=== PATIENT | female | born 1980 | race Caucasian/White ===

== ENCOUNTER 2016-06-05 09:42 | Emergency (ER) | payer MEDICARE, OTHER ==
[~2016-06-05] VITALS: Ht 162.6 cm; Wt 80.0 kg
[~2016-06-05 09:42] MED LIST: CLON1 PO
[2016-06-05] MEDS ORDERED: VIST50CA PO (09:58)
[2016-06-05] MEDS ORDERED: CELE40TA PO (09:58)
[2016-06-05] MEDS ORDERED: TRAZ150T75 PO (09:58)
[2016-06-05 10:00] VITALS: BP 134/76; PULSE 100; RESP 20; TEMP 98.5; O2SAT 97
[2016-06-05] MEDS ORDERED: LORazepam 1 MG TAB PO ONE (10:15)
[2016-06-05 11:00] LABS: AUTOMATED NEUTROPHIL # 5.9 TH/MM3 (1.8-7.7); BASOPHIL % 0.4 % (0.0-2.0); EOSINOPHIL # 0.2 TH/MM3 (0-0.4); EOSINOPHIL % 2.4 % (0.0-4.0); HEMATOCRIT 37.4 % (35.0-46.0); HEMO FLAGS DIFF FINAL; LYMPH % 26.5 % (9.0-44.0); LYMPHOCYTE # 2.4 TH/MM3 (1.0-4.8); MEAN CELL VOLUME 86.5 FL (80.0-100.0); MEAN CORPUSCULAR HEMOGLOBIN 28.6 PG (27.0-34.0); MEAN CORPUSCULAR HGB CONC 33.1 % (32.0-36.0); MONO % 5.2 % (0.0-8.0); NEUT % 65.5 % (16.0-70.0); PLATELET COUNT 278 TH/MM3 (150-450); RED BLOOD COUNT 4.32 MIL/MM3 (4.00-5.30); RED CELL DISTRIBUTION WIDTH 13.2 % (11.6-17.2); WHITE BLOOD COUNT 9.1 TH/MM3 (4.0-11.0)
[2016-06-05 11:06] LABS: GLOMERULAR FILTRATION RATE 71 ML/MIN (>89)
[2016-06-05 11:07] LABS: ACETAMINOPHEN 3.5 MCG/ML (10.0-30.0); ALT (GPT) 54 U/L (10-53); ANION GAP 8 MEQ/L (5-15); AST (GOT) 34 U/L (15-37); BICARBONATE 22.9 MEQ/L (21.0-32.0); CHLORIDE 105 MEQ/L (98-107); POTASSIUM 3.6 MEQ/L (3.5-5.1); SODIUM (NA) 136 MEQ/L (136-145)
[2016-06-05 11:08] LABS: ALKALINE PHOSPHATASE 95 U/L (45-117); TOTAL BILIRUBIN ADULT 1.2 MG/DL (0.2-1.0)
[2016-06-05 11:11] LABS: AMPHETAMINE, URINE POS (NEG); BARBITURATES, URINE NEG (NEG); COCAINE, URINE NEG (NEG)
[2016-06-05 11:12] LABS: BLOOD UREA NITROGEN 13 MG/DL (7-18)
[2016-06-05 12:00] VITALS: BP 133/63; PULSE 91; RESP 19; O2SAT 97
--- NOTE | 2016-06-05 12:00 | PD ---
HPI Chief Complaint: Psychiatric Symptoms Time Seen by Provider: 10:02 Travel History International Travel<30 days: No Contact w/Intl Traveler<30days: No Traveled to known affect area: No History of Present Illness HPI Patient is a 35 year old female who is brought in by PD under a Price Act. Patient has been here multiple times for psych evals and drug abuse. She says she has not been able to get her psych meds secondary to monetary issues. She is speaking fast and complaining of her mother and boyfriend selling pain medicine and not helping her. Her family called police because they were concerned about her. PFSH Past Medical History Bipolar Disorder: Yes Anxiety: Yes Heart Rhythm Problems: No Cancer: No Cardiovascular Problems: No High Cholesterol: No Chest Pain: No Congestive Heart Failure: No Diminished Hearing: No Endocrine: No Genitourinary: No Immune Disorder: No Musculoskeletal: Yes (right foot pain) Neurologic: No Psychiatric: Yes (PTSD, DISSOCIATIVE D/O) Reproductive: No Respiratory: No Immunizations Current: Yes Tetanus Vaccination: < 5 Years ?: Not LMP: 2 weeks ago : 1 Para: 1 Past Surgical History Section: Yes Cholecystectomy: Yes Other Surgery: Yes Social History Alcohol Use: No (PT DENIES) Tobacco Use: Yes (/2 PPD) Substance Use: Yes Allergies-Medications (Allergen,Severity, Reaction): Coded Allergies: *MDRO Multi-Drug Resistant Organism (Verified Allergy, Unknown, 06/05/16) MRSA Foot Wound 08/2012 Reported Meds & Prescriptions Reported Meds & Active Scripts Active Reported Trazodone (Trazodone HCl) 150 Mg Tab 150 Mg PO HS Vistaril (Hydroxyzine Pamoate) 50 Mg Cap 50 Mg PO QID PRN Celexa (Citalopram Hydrobromide) 40 Mg Tab 40 Mg PO DAILY Review of Systems Except as stated in HPI: all other systems reviewed are Neg General / Constitutional: No: Fever, Chills HENT: No: Headaches, Lightheadedness Cardiovascular: No: Chest Pain or Discomfort Respiratory: No: Shortness of Breath Gastrointestinal: No: Nausea, Vomiting Genitourinary: No: Dysuria Musculoskeletal: No: Myalgias Skin: Positive Rash, Positive Itching Neurologic: No: Weakness, Dizziness Physical Exam Narrative GENERAL: Awake and alert, in no acute distress SKIN: Warm and dry. Urticaria present on the abdomen and legs. HEAD: Atraumatic. Normocephalic. EYES: Pupils equal and round. No scleral icterus. ENT: Mucous membranes pink and moist. NECK: Trachea midline. No JVD. CARDIOVASCULAR: Regular rate and rhythm. No murmur appreciated. RESPIRATORY: No accessory muscle use. Clear to auscultation. Breath sounds equal bilaterally. GASTROINTESTINAL: Abdomen soft, non-tender, nondistended. MUSCULOSKELETAL: No obvious deformities. No clubbing. No cyanosis. No edema. NEUROLOGICAL: Awake and alert. No obvious cranial nerve deficits. Motor grossly within normal limits. Normal speech. PSYCHIATRIC: anxious, pressured speech Data Data Last Documented VS Vital Signs Date Time Temp Pulse Resp B/P Pulse Ox O2 Delivery O2 Flow Rate FiO2 06/05/16 12:00 91 19 133/63 97 Room Air 06/05/16 10:00 98.5 Orders Complete Blood Count With Diff (06/05/16 10:02) Comprehensive Metabolic Panel (06/05/16 10:02) Drug Screen, Random Urine (06/05/16 10:02) Ed Urine Pregnancytest Poc (06/05/16 10:02) Alcohol (Ethanol) (06/05/16 10:02) Salicylates (Aspirin) (06/05/16 10:02) Tylenol (Acetaminophen) (06/05/16 10:02) Psych Screen (06/05/16 10:02) Hydroxyzine Pamoate (Vistaril) (06/05/16 10:15) Lorazepam (Ativan) (06/05/16 10:15) Diet Regular Basic (06/05/16 Lunch) Labs Laboratory Tests Test 06/05/16 06/05/16 10:30 10:40 Urine Opiates Screen POS Urine Barbiturates Screen NEG Urine Amphetamines Screen POS Urine Benzodiazepines Screen POS Urine Cocaine Screen NEG Urine Cannabinoids Screen POS White Blood Count 9.1 TH/MM3 Red Blood Count 4.32 MIL/MM3 Hemoglobin 12.4 GM/DL Hematocrit 37.4 % Mean Corpuscular Volume 86.5 FL Mean Corpuscular Hemoglobin 28.6 PG Mean Corpuscular Hemoglobin 33.1 % Concent Red Cell Distribution Width 13.2 % Platelet Count 278 TH/MM3 Mean Platelet Volume 7.6 FL Neutrophils (%) (Auto) 65.5 % Lymphocytes (%) (Auto) 26.5 % Monocytes (%) (Auto) 5.2 % Eosinophils (%) (Auto) 2.4 % Basophils (%) (Auto) 0.4 % Neutrophils # (Auto) 5.9 TH/MM3 Lymphocytes # (Auto) 2.4 TH/MM3 Monocytes # (Auto) 0.5 TH/MM3 Eosinophils # (Auto) 0.2 TH/MM3 Basophils # (Auto) 0.0 TH/MM3 CBC Comment DIFF FINAL Differential Comment Sodium Level 136 MEQ/L Potassium Level 3.6 MEQ/L Chloride Level 105 MEQ/L Carbon Dioxide Level 22.9 MEQ/L Anion Gap 8 MEQ/L Blood Urea Nitrogen 13 MG/DL Creatinine 0.90 MG/DL Estimat Glomerular Filtration 71 ML/MIN Rate Random Glucose 73 MG/DL Calcium Level 8.0 MG/DL Total Bilirubin 1.2 MG/DL Aspartate Amino Transf 34 U/L (AST/SGOT) Alanine Aminotransferase 54 U/L (ALT/SGPT) Alkaline Phosphatase 95 U/L Total Protein 6.8 GM/DL Albumin 3.4 GM/DL Salicylates Level 1.9 MG/DL Acetaminophen Level 3.5 MCG/ML Ethyl Alcohol Level LESS THAN 3 MG/DL MDM Medical Decision Making Medical Screen Exam Complete: Yes Emergency Medical Condition: Yes Medical Record Reviewed: Yes Differential Diagnosis drug abuse, sukhdeep, psychosis Narrative Course Patient is a 35 year old female brought in by PD under a BA for psychosis. Exam shows pressured speech, urticaria. Patient requesting vistaril. Given vistarail and Ativan. Labs sent, show no acute abnormalities. Drug screen positive for amphetamines, opiates, benzos. Patient medically cleared for psych screen. Disposition per psychiatry. Diagnosis Primary Impression: Psychosis Qualified Code: F23 - Brief psychotic disorder Condition: Stable Jeny Camacho MD Jun 05, 2016 12:00
[2016-06-05 18:16] VITALS: BP 115/75; PULSE 95; RESP 18
[2016-06-05] MEDS ORDERED: hydrOXYzine PAMOATE 25 MG CAP PO ONE (20:30)
[2016-06-05 22:36] VITALS: BP 110/57; PULSE 75; RESP 14
[2016-06-06 02:21] VITALS: BP 128/62; PULSE 77; RESP 16
[2016-06-06 06:47] VITALS: BP 113/58; PULSE 92; RESP 17; O2SAT 98
== END 2016-06-06 08:39 ==
LOC: NEPA 09:42 → NEPJ 06-06 08:39
DX: F29 Unspecified psychosis not due to a substance or known physiological condition (principal); L50.9 Urticaria, unspecified; F31.9 Bipolar disorder, unspecified; F41.9 Anxiety disorder, unspecified; F43.10 Post-traumatic stress disorder, unspecified; F17.210 Nicotine dependence, cigarettes, uncomplicated
CPT/HCPCS: 80053; 80307; 84703; 85025; 99285; Q0177; 80320; 80329; G0480; G0481

== ENCOUNTER 2017-01-11 04:36 | Emergency (ER) | payer MEDICARE, OTHER ==
[~2017-01-11 04:36] MED LIST changes: +CELE40TA PO; -CLON1 PO; +TRAZ150T75 PO; +VIST50CA PO
[2017-01-11 04:59] VITALS: BP 125/91; PULSE 105; RESP 20; TEMP 98; O2SAT 99
--- NOTE | 2017-01-11 04:59 | PD ---
HPI Chief Complaint: [place] act Time Seen by Provider: 04:50 Travel History International Travel<30 days: No Contact w/Intl Traveler<30days: No Traveled to known affect area: No History of Present Illness HPI 36-year-old female presents under [place] act initiated by the police. The patient reports that she was arrested yesterday for disorderly conduct at her mother's house, just recently released. The patient reports that she was standing outside of a mailbox in her mother's neighborhood this evening when a man with the neighborhood watch felt that she was acting suspicious any called the police. She was then placed under [place] act because of her history of IV methamphetamine abuse. The patient reports that she was just released from penitentiary and has not used any drugs. She does not use any alcohol. She reports that she is somewhat thirsty but she is otherwise without complaint. She reports that she has been upset because the payment for her storage unit is late because she was in penitentiary. She denies suicidal or homicidal ideation. She has no medical complaints at this time. PFSH Past Medical History Bipolar Disorder: Yes Anxiety: Yes Heart Rhythm Problems: No Cancer: No Cardiovascular Problems: No High Cholesterol: No Chest Pain: No Congestive Heart Failure: No Diminished Hearing: No Endocrine: No Genitourinary: No Immune Disorder: No Musculoskeletal: Yes (right foot pain) Neurologic: No Psychiatric: Yes (PTSD, DISSOCIATIVE D/O) Reproductive: No Respiratory: No Immunizations Current: Yes : 1 Para: 1 Past Surgical History Section: Yes Cholecystectomy: Yes Other Surgery: Yes Social History Alcohol Use: No (PT DENIES) Tobacco Use: Yes (1/2 PPD) Substance Use: Yes Allergies-Medications (Allergen,Severity, Reaction): Coded Allergies: *MDRO Multi-Drug Resistant Organism (Verified Allergy, Unknown, 06/05/16) MRSA Foot Wound 08/2012 Reported Meds & Prescriptions Reported Meds & Active Scripts Active Reported Trazodone (Trazodone HCl) 150 Mg Tab 150 Mg PO HS Vistaril (Hydroxyzine Pamoate) 50 Mg Cap 50 Mg PO QID PRN Celexa (Citalopram Hydrobromide) 40 Mg Tab 40 Mg PO DAILY Review of Systems Except as stated in HPI: all other systems reviewed are Neg Physical Exam Narrative GENERAL: Well-developed well-nourished female in no acute distress answering questions appropriately vital signs reviewed. SKIN: Warm and dry. HEAD: Atraumatic. Normocephalic. EYES: Pupils equal and round. No scleral icterus. No injection or drainage. ENT: No nasal bleeding or discharge. Mucous membranes pink and moist. NECK: Trachea midline. No JVD. CARDIOVASCULAR: Regular rate and rhythm. No murmur appreciated. RESPIRATORY: No accessory muscle use. Clear to auscultation. Breath sounds equal bilaterally. GASTROINTESTINAL: Abdomen soft, non-tender, nondistended. Hepatic and splenic margins not palpable. MUSCULOSKELETAL: No obvious deformities. No clubbing. No cyanosis. No edema. NEUROLOGICAL: Awake and alert. No obvious cranial nerve deficits. Motor grossly within normal limits. Normal speech. PSYCHIATRIC: Appropriate mood and affect; insight and judgment normal. Data Data Last Documented VS Vital Signs Date Time Temp Pulse Resp B/P (MAP) Pulse Ox O2 Delivery O2 Flow Rate FiO2 01/11/17 04:59 98.0 105 20 125/91 (102) 99 Orders Orders Oral Rehydration (01/11/17 04:56) [facility] Medical Decision Making Medical Screen Exam Complete: Yes Emergency Medical Condition: Yes Medical Record Reviewed: Yes Differential Diagnosis Suspicious activity versus polysubstance abuse versus acute psychosis Narrative Course The patient appears to be of sound mind with reasonable judgment. She does not appear under the influence of any drugs or alcohol. When she is able to obtain a ride home she will be discharged. Diagnosis Primary Impression: History of methamphetamine abuse Med/Other Pt SpecificInfo: No Change to Meds Disposition: 01 DISCHARGE HOME Condition: Stable Shubham Moore Jan 11, 2017 04:59
[2017-01-11 08:08] VITALS: BP 123/81; TEMP 97.8
== END 2017-01-11 08:13 | disposition home or self-care (01) ==
LOC: NEPD 04:36
DX: F15.21 Other stimulant dependence, in remission (principal); F31.9 Bipolar disorder, unspecified; F41.9 Anxiety disorder, unspecified; F43.10 Post-traumatic stress disorder, unspecified; F44.9 Dissociative and conversion disorder, unspecified; F17.200 Nicotine dependence, unspecified, uncomplicated; Z79.899 Other long term (current) drug therapy
CPT/HCPCS: 99281

== ENCOUNTER 2017-01-11 11:46 | Inpatient (IN) | payer MEDICARE, OTHER ==
[~2017-01-11] VITALS: Ht 165.1 cm; Wt 65.4 kg
[2017-01-11 12:02] VITALS: BP 136/84; PULSE 95; RESP 16; TEMP 98.2; O2SAT 97
--- NOTE | 2017-01-11 12:59 | PD ---
HPI Chief Complaint: Psychiatric Symptoms Time Seen by Provider: 12:59 (Gin Madden) Time Seen by Provider: 13:11 (Latasha Peace MD) Travel History International Travel<30 days: No Contact w/Intl Traveler<30days: No Traveled to known affect area: No (Gin Madden) History of Present Illness HPI 36 year old female with history of methamphetamine dependency, recently discharged from the hospital following a [place] act, presents to the emergency department now under Price act for psychiatric evaluation. Patient got a tonight with her mother and made comments about not wanting to live. Place contacted and she was brought in under a Price act. Patient denies suicidal or homicidal ideations. She does tell me that her and her mother are not good for each other. She states they both need to get well. Patient continues to ramble about her and her mother's relationship. Then she goes on to her drug abuse. She stating that she needs help and was well taken care of here. She has no other symptoms to report at this time. (Gin Madden) [facility] Past Medical History Bipolar Disorder: Yes Anxiety: Yes Heart Rhythm Problems: No Cancer: No Cardiovascular Problems: No High Cholesterol: No Chest Pain: No Congestive Heart Failure: No Diminished Hearing: No Endocrine: No Genitourinary: No Immune Disorder: No Musculoskeletal: Yes (right foot pain) Neurologic: No Psychiatric: Yes (PTSD, DISSOCIATIVE D/O) Reproductive: No Respiratory: No Immunizations Current: Yes ?: Not : 1 Para: 1 (Gin Madden) Past Surgical History Section: Yes Cholecystectomy: Yes Gynecologic Surgery: Yes (perforated uterus ) Other Surgery: Yes (Gin Madden) Social History Alcohol Use: No (PT DENIES) Tobacco Use: Yes (1/2 PPD) Substance Use: Yes (meth) (Gin Madden) Allergies-Medications (Allergen,Severity, Reaction): Coded Allergies: *MDRO Multi-Drug Resistant Organism (Verified Allergy, Unknown, 06/05/16) MRSA Foot Wound 08/2012 Reported Meds & Prescriptions Reported Meds & Active Scripts Active (Latasha Peace MD) Review of Systems Except as stated in HPI: all other systems reviewed are Neg (Gin Madden) Physical Exam Narrative GENERAL: Well-nourished tearful woman, slightly anxious but in no acute distress. Unable to focus on one topic during our conversation. SKIN: Focused skin assessment warm/dry. HEAD: Atraumatic. Normocephalic. EYES: Pupils equal and round. No scleral icterus. No injection or drainage. ENT: No nasal bleeding or discharge. Mucous membranes pink and moist. NECK: Trachea midline. No JVD. CARDIOVASCULAR: Regular rate and rhythm. No murmur appreciated. RESPIRATORY: No accessory muscle use. Clear to auscultation. Breath sounds equal bilaterally. GASTROINTESTINAL: Abdomen soft, non-tender, nondistended. Hepatic and splenic margins not palpable. MUSCULOSKELETAL: No obvious deformities. No clubbing. No cyanosis. No edema. NEUROLOGICAL: Awake and alert. No obvious cranial nerve deficits. Motor grossly within normal limits. Normal speech. (Gin Madden) Data Data Last Documented VS Vital Signs Date Time Temp Pulse Resp B/P (MAP) Pulse Ox O2 Delivery O2 Flow Rate FiO2 01/12/17 06:00 72 17 112/67 (82) 97 Room Air 01/11/17 12:02 98.2 (Latasha Peace MD) Orders Orders Complete Blood Count With Diff (01/11/17 12:08) Basic Metabolic Panel (Bmp) (01/11/17 12:08) Ed Urine Pregnancytest Poc (01/11/17 12:08) Psych Screen (01/11/17 12:08) Drug Screen, Random Urine (01/11/17 12:08) Alcohol (Ethanol) (01/11/17 12:08) Olanzapine Inj (Zyprexa Inj) (01/11/17 13:45) Diphenhydramine Inj (Benadryl Inj) (01/11/17 13:45) Lorazepam Inj (Ativan Inj) (01/11/17 13:38) Lorazepam Inj (Ativan Inj) (01/11/17 13:40) Potassium Chloride Eff (K-Lyte Cl Eff) (01/11/17 16:30) Diet Regular Basic (01/11/17 Dinner) Diet Regular Basic (01/12/17 Breakfast) (Latasha Peace MD) Labs Laboratory Tests Test 01/11/17 12:20 01/11/17 15:23 Urine Opiates Screen NEG Urine Barbiturates Screen NEG Urine Amphetamines Screen POS Urine Benzodiazepines Screen NEG Urine Cocaine Screen NEG Urine Cannabinoids Screen POS White Blood Count 7.3 TH/MM3 Red Blood Count 4.26 MIL/MM3 Hemoglobin 13.0 GM/DL Hematocrit 36.7 % Mean Corpuscular Volume 85.9 FL Mean Corpuscular Hemoglobin 30.6 PG Mean Corpuscular Hemoglobin Concent 35.6 % Red Cell Distribution Width 13.0 % Platelet Count 295 TH/MM3 Mean Platelet Volume 9.2 FL Neutrophils (%) (Auto) 58.2 % Lymphocytes (%) (Auto) 30.6 % Monocytes (%) (Auto) 7.4 % Eosinophils (%) (Auto) 3.3 % Basophils (%) (Auto) 0.5 % Neutrophils # (Auto) 4.2 TH/MM3 Lymphocytes # (Auto) 2.2 TH/MM3 Monocytes # (Auto) 0.5 TH/MM3 Eosinophils # (Auto) 0.2 TH/MM3 Basophils # (Auto) 0.0 TH/MM3 CBC Comment DIFF FINAL Differential Comment Blood Urea Nitrogen 5 MG/DL Creatinine 0.73 MG/DL Random Glucose 82 MG/DL Calcium Level 8.2 MG/DL Sodium Level 138 MEQ/L Potassium Level 3.0 MEQ/L Chloride Level 105 MEQ/L Carbon Dioxide Level 23.4 MEQ/L Anion Gap 10 MEQ/L Estimat Glomerular Filtration Rate 90 ML/MIN Ethyl Alcohol Level LESS THAN 3 MG/DL (Latasha Peace MD) MDM Medical Decision Making Medical Screen Exam Complete: Yes Emergency Medical Condition: Yes Medical Record Reviewed: Yes Differential Diagnosis Mood disorder versus personality disorder versus adjustment reaction disorder Narrative Course 36 year-old female presents to the emergency department under a Price act for psychiatric evaluation. Patient is unable to focus completely during our conversation. She goes off on many different hand gins. She appears without distress although slightly anxious. CBC is with hypokalemia 3.0, otherwise without acute concern. Toxicology is positive for amphetamines and cannabinoids. Patient is medically cleared to undergo psychiatric screening for further evaluation and disposition. Mental health screening discussed with the patient. Psychiatric screen ordered. (Gin Madden) Diagnosis Primary Impression: Polysubstance (including opioids) dependence, daily use Additional Impression: Hypokalemia Condition: Stable Gin Madden Jan 11, 2017 12:59 Latasha Peace MD Jan 12, 2017 08:23
[2017-01-11] MEDS ORDERED: LORazepam 2 MG/ML VIAL ONE (13:38)
[2017-01-11] MEDS ORDERED: LORazepam 2 MG/ML VIAL IM ONE (13:40)
[2017-01-11] MEDS ORDERED: OLANZapine IM 10 MG VIAL IM ONE (13:45)
[2017-01-11] MEDS ORDERED: diphenhydrAMINE HCL 50 MG/ML VIAL IM ONE (13:45)
[2017-01-11 16:06] LABS: AUTOMATED NEUTROPHIL # 4.2 TH/MM3 (1.8-7.7); BASOPHIL % 0.5 % (0.0-2.0); EOSINOPHIL # 0.2 TH/MM3 (0-0.4); EOSINOPHIL % 3.3 % (0.0-4.0); HEMATOCRIT 36.7 % (35.0-46.0); HEMO FLAGS DIFF FINAL; LYMPH % 30.6 % (9.0-44.0); LYMPHOCYTE # 2.2 TH/MM3 (1.0-4.8); MEAN CELL VOLUME 85.9 FL (80.0-100.0); MEAN CORPUSCULAR HEMOGLOBIN 30.6 PG (27.0-34.0); MEAN CORPUSCULAR HGB CONC 35.6 % (32.0-36.0); MONO % 7.4 % (0.0-8.0); NEUT % 58.2 % (16.0-70.0); PLATELET COUNT 295 TH/MM3 (150-450); RED BLOOD COUNT 4.26 MIL/MM3 (4.00-5.30); WHITE BLOOD COUNT 7.3 TH/MM3 (4.0-11.0)
[2017-01-11 16:13] LABS: ANION GAP 10 MEQ/L (5-15); BICARBONATE 23.4 MEQ/L (21.0-32.0); BLOOD UREA NITROGEN 5 MG/DL (7-18); CHLORIDE 105 MEQ/L (98-107); GLOMERULAR FILTRATION RATE 90 ML/MIN (>89); SODIUM (NA) 138 MEQ/L (136-145)
[2017-01-11 16:14] LABS: ALCOHOL LESS THAN 3 MG/DL (0-5)
[2017-01-11] MEDS ORDERED: POTASSIUM CHLORIDE 25 MEQ EFFERVESCENT TAB PO ONE (16:30)
[2017-01-11 18:17] VITALS: BP 110/65; PULSE 77; RESP 18; O2SAT 96
[2017-01-11 22:00] VITALS: BP 117/64; PULSE 71; RESP 18
[2017-01-12 02:04] VITALS: BP 113/67; PULSE 81; RESP 18; O2SAT 98
[2017-01-12 06:00] VITALS: BP 112/67; PULSE 72; RESP 17; O2SAT 97
[2017-01-12] MEDS ORDERED: LORazepam 0.5 MG TAB PO PRN (10:30)
[2017-01-12] MEDS ORDERED: LORazepam 2 MG/ML VIAL IM PRN ×2 (10:30→11:00)
--- NOTE | 2017-01-12 10:35 | HHI.HP ---
Provisional Diagnosis Admission Date Sells I. Adjustment disorder with mixed disturbance of emotion and conduct Certification of Person's Competence To Provide Express and Informed Consent I have personally examined Aileen Zamarripa , a person being served at [facility] on, Jan 12, 2017 10:25. Express and informed consent means consent voluntarily given in writing, by a competent person, after sufficient explanation and disclosure of the subject matter involved to enable the person to make a knowing and willful decision without any element of force, fraud, deceit, duress, or other form of constraint or coercion. This person is 18 years of age or older, is not now known to be incompetent to consent to treatment with a guardian advocate, and does not have a health care surrogate or proxy currently making medical treatment decisions. I have found this person to be one of the following: [x] Competent to provide express and informed consent, as defined above, for voluntary admission to this facility and is competent to provide express and informed consent for treatment. He/she has the consistent capacity to make well reasoned, willful, and knowing decisions concerning his or her medical or mental health treatment. The person fully and consistently understands the purpose of the admission for examination/placement and is fully capable of personally exercising all rights [place] Incompetent to provide express and informed consent to voluntary admission, and this is incompetent to provide express and informed consent to treatment. The person must be transferred to involuntary status and a petition for a guardian advocate filed with the Circuit Court. [] Refusing to provide express and informed consent to voluntary admission but is competent to provide express and informed consent for treatment. The person must be discharged or transferred to involuntary status. Form shall be completed within 24 hours of a person's arrival at the receiving facility and filed in the clinical record of each person: 1. Admitted on a voluntary basis 2. Permitted to provide express and informed consent to his/her own treatment 3. Allowed to transfer from involuntary to voluntary status 4. Prior to permitting a person to consent to his or her own treatment after having been previously found incompetent to consent to treatment. History of Present Illness Capacity: Has Capacity HPI This is a 36-year-old female who presented to our emergency department twice yesterday, the second time under a Price act for making suicidal threats. The patient is a poor historian and she gives a disjointed account of what happened to bring her back. She states that she and her mother were doing errands and that they are not good for each other. She admits to making suicidal statements. She was also agitated yesterday to the point where she required an intramuscular injection of antipsychotic, Zyprexa. Patient is sad today and unable to contract for safety. She describes symptoms of depressed mood, anhedonia, sleep disturbance, anxiety, intermittent suicidal ideation, appetite disturbance, social withdrawal, diminished self-esteem, and feelings of hopelessness and helplessness. Patient is noted to have been admitted in May this year and twice last year. Her medical record describes a history of bipolar disorder and self-medicating with methamphetamine and cannabis. Historically, patient has been treated with Celexa, trazodone and Vistaril. She states she has been off her medicines for months. Review of Systems Except as stated in HPI: all other systems reviewed are Neg Past Psych History Psychological trauma history Abuse when she was younger Violence risk - others (6 mos) Minimal Violence risk - self (6 mos) High Substance Abuse History Drugs/Alcohol past 12 months Recently abusing cannabis and crystal meth. Past Family Social History Coded Allergies: *MDRO Multi-Drug Resistant Organism (Verified Allergy, Unknown, 06/05/16) MRSA Foot Wound 08/2012 Discontinued Reported Medications Hydroxyzine Pamoate (Vistaril) 50 Mg Cap, 50 MG PO QID Y for ANXIETY, CAP 0 Refills 06/05/16 Citalopram (Celexa) 40 Mg Tab, 40 MG PO DAILY for Control Depression, #30 TAB 0 Refills 06/05/16 Family History Positive for mood and anxiety disorders. Social History Intermittently employed. Has one child. Lives with her mother. Self medicates with illicit drugs. Does not drink alcohol. Patient's Strengths (min. 2) Verbal and resilient Physical Exam GENERAL: SKIN: Warm and dry. HEAD: Normocephalic. EYES: No scleral icterus. No injection or drainage. NECK: Supple, trachea midline. No JVD or lymphadenopathy. CARDIOVASCULAR: Regular rate and rhythm without murmurs, gallops, or rubs. RESPIRATORY: Breath sounds equal bilaterally. No accessory muscle use. GASTROINTESTINAL: Abdomen soft, non-tender, nondistended. MUSCULOSKELETAL: No cyanosis, or edema. BACK: Nontender without obvious deformity. No CVA tenderness. Vital Signs Vital Signs Date Time Temp Pulse Resp B/P (MAP) Pulse Ox O2 Delivery O2 Flow Rate FiO2 01/12/17 06:00 72 17 112/67 (82) 97 Room Air 01/11/17 12:02 98.2 Lab Results Test 01/11/17 12:20 01/11/17 15:23 Urine Opiates Screen NEG Urine Barbiturates Screen NEG Urine Amphetamines Screen POS Urine Benzodiazepines Screen NEG Urine Cocaine Screen NEG Urine Cannabinoids Screen POS White Blood Count 7.3 TH/MM3 Red Blood Count 4.26 MIL/MM3 Hemoglobin 13.0 GM/DL Hematocrit 36.7 % Mean Corpuscular Volume 85.9 FL Mean Corpuscular Hemoglobin 30.6 PG Mean Corpuscular Hemoglobin Concent 35.6 % Red Cell Distribution Width 13.0 % Platelet Count 295 TH/MM3 Mean Platelet Volume 9.2 FL Neutrophils (%) (Auto) 58.2 % Lymphocytes (%) (Auto) 30.6 % Monocytes (%) (Auto) 7.4 % Eosinophils (%) (Auto) 3.3 % Basophils (%) (Auto) 0.5 % Neutrophils # (Auto) 4.2 TH/MM3 Lymphocytes # (Auto) 2.2 TH/MM3 Monocytes # (Auto) 0.5 TH/MM3 Eosinophils # (Auto) 0.2 TH/MM3 Basophils # (Auto) 0.0 TH/MM3 CBC Comment DIFF FINAL Differential Comment Blood Urea Nitrogen 5 MG/DL Creatinine 0.73 MG/DL Random Glucose 82 MG/DL Calcium Level 8.2 MG/DL Sodium Level 138 MEQ/L Potassium Level 3.0 MEQ/L Chloride Level 105 MEQ/L Carbon Dioxide Level 23.4 MEQ/L Anion Gap 10 MEQ/L Estimat Glomerular Filtration Rate 90 ML/MIN Ethyl Alcohol Level LESS THAN 3 MG/DL Mental Status Examination Speech: Hesitant, Circumstantial, Tangential Orientation: x3 Memory: Unremarkable Thought Process: Circumstantial, Tangential Thought Content: Bizarre thinking Hallucination Type: None Attention and Concentration: Abnormal Suicidal Ideation: Yes Previous Suicide Attempts: No Homicidal Ideation: No Previous Homicide Attempts: No Insight: Fair Judgment: Impulsive, Unrealistic Affect: Anxious, Sad Mood: Sad, Anxious Motor Activity: Normal gait Assessment & Plan Problem List: (1) Adjustment disorder with mixed disturbance of emotions and conduct ICD Codes: F43.25 - Adjustment disorder with mixed disturbance of emotions and conduct Status: Acute Assessment & Plan Estimated LOS: days. Patient came to this emergency department twice yesterday , the second time under a Price act for suicidal remarks. She also required an intramuscular injection of antipsychotic medication because she was so agitated. This physician feels she is at high risk for self-harm and therefore is being admitted for evaluation and treatment. This physician is ordering a CBC and comprehensive metabolic profile to determine if the patient has an infectious process or metabolic process which is causing or contributing to her moodiness. Additionally, we will check her thyroid stimulating hormone, vitamin B-12 and vitamin D levels, encase deficiencies in these areas are causing or contributing to her mood disorder. Additionally, she will have an EKG to determine her cardiac conduction status which might be adversely affected by psychotropic medicines. Patient was started back on Celexa, 40 mg per day, per her request. She was also started back on trazodone for sleep and hydroxyzine for anxiety. This physician spoke to the patient's nurse regarding her recent behavior. Case management will also be involved to obtain further information from the patient's mother and to assist with appropriate disposition planning. Ko Victor MD Jan 12, 2017 10:35
[2017-01-12] MEDS ORDERED: MAGNESIUM HYDROXIDE SUSP 30 ML CUP PO PRN (11:00)
[2017-01-12] MEDS: CITALOPRAM HYDROBROMIDE 40 MG TAB PO SCH (11:00)
[2017-01-12] MEDS ORDERED: LORazepam 1 MG TAB PO PRN (11:00)
[2017-01-12] MEDS ORDERED: ACETAMINOPHEN 325 MG TAB PO PRN (11:00)
[2017-01-12] MEDS ORDERED: hydrOXYzine HCL 50 MG TAB PO PRN (11:00)
[2017-01-12] MEDS ORDERED: ALUMINUM/MAGNESIUM/SIMETH 30 ML CUP PO PRN (11:00)
[2017-01-12 11:25] VITALS: BP 116/70; PULSE 79; RESP 18; O2SAT 98
[2017-01-12 12:51] VITALS: BP 139/80; PULSE 100; RESP 19; TEMP 97.8; O2SAT 98
[2017-01-12 18:36] VITALS: BP 136/78; PULSE 64; RESP 17; TEMP 97.5; O2SAT 98
[2017-01-12] MEDS: traZODone HCL 50 MG TAB PO PRN (21:29)
[2017-01-13 06:10] VITALS: BP 94/52; PULSE 73; RESP 17; TEMP 98.2; O2SAT 97
[2017-01-13] MEDS: CITALOPRAM HYDROBROMIDE 40 MG TAB PO SCH (09:00)
[2017-01-13 10:11] LABS: AUTOMATED NEUTROPHIL # 4.4 TH/MM3 (1.8-7.7); BASOPHIL % 0.3 % (0.0-2.0); EOSINOPHIL # 0.2 TH/MM3 (0-0.4); EOSINOPHIL % 3.1 % (0.0-4.0); HEMATOCRIT 38.7 % (35.0-46.0); HEMO FLAGS DIFF FINAL; LYMPH % 27.5 % (9.0-44.0); LYMPHOCYTE # 1.9 TH/MM3 (1.0-4.8); MEAN CELL VOLUME 88.6 FL (80.0-100.0); MEAN CORPUSCULAR HEMOGLOBIN 30.3 PG (27.0-34.0); MEAN CORPUSCULAR HGB CONC 34.2 % (32.0-36.0); MONO % 6.9 % (0.0-8.0); NEUT % 62.2 % (16.0-70.0); PLATELET COUNT 298 TH/MM3 (150-450); RED BLOOD COUNT 4.38 MIL/MM3 (4.00-5.30); RED CELL DISTRIBUTION WIDTH 13.1 % (11.6-17.2); WHITE BLOOD COUNT 7.1 TH/MM3 (4.0-11.0)
[2017-01-13 10:27] LABS: ANION GAP 10 MEQ/L (5-15); AST (GOT) 15 U/L (15-37); BICARBONATE 26.2 MEQ/L (21.0-32.0); BLOOD UREA NITROGEN 7 MG/DL (7-18); CHLORIDE 104 MEQ/L (98-107); GLOMERULAR FILTRATION RATE 79 ML/MIN (>89); POTASSIUM 3.4 MEQ/L (3.5-5.1); SODIUM (NA) 140 MEQ/L (136-145)
[2017-01-13 10:55] LABS: ALKALINE PHOSPHATASE 72 U/L (45-117); ALT (GPT) 31 U/L (10-53); HDL CHOLESTEROL 46.9 MG/DL (40.0-60.0); LDL CHOLESTEROL 78 MG/DL (0-99); TOTAL BILIRUBIN ADULT 0.5 MG/DL (0.2-1.0)
--- NOTE | 2017-01-13 11:34 | HHI.PYPN ---
Subjective Remarks Patient was seen today for psychiatric reevaluation. Patient reports feeling much better and calmer. However, expressed paranoid ideation against her mother "she is millionaire and is stealing my money", and seems to be a little bit disorganized and tangential, but redirectable. She reported improved mood, denies hopelessness, helplessness, denies suicidal and homicidal ideation. Patient is requesting to be discharged, but is unable to clarify what she is going to go after this admission. I tried to contact her mother for collateral information, but she did not sampler pickup the phone ([phone]). In the unit patient has been calm, but at times disorganized and internally preoccupied. No agitation or hostility reported. Patient has been compliant with medications without any significant side effects. At the beginning patient denied the use of substances, but she was confronted with labs results and she admitted that she has been using IV crystal meth, marijuana and sometimes alcohol. Review of Systems Other No somatic complaints Objective Alert: Yes [place]: Person, Place, Date, Situation Mood: Calm Affect: Flat Memory Intact: Immediate, Recent Hallucinations: Other (she denies) Delusions: Yes Delusion Type: Paranoid, Other Suicidal: Ideation (no SI) Homicidal: Ideation (no HI) Insight/Judgment Poor Labs Test 01/13/17 08:52 White Blood Count 7.1 TH/MM3 Red Blood Count 4.38 MIL/MM3 Hemoglobin 13.2 GM/DL Hematocrit 38.7 % Mean Corpuscular Volume 88.6 FL Mean Corpuscular Hemoglobin 30.3 PG Mean Corpuscular Hemoglobin Concent 34.2 % Red Cell Distribution Width 13.1 % Platelet Count 298 TH/MM3 Mean Platelet Volume 9.2 FL Neutrophils (%) (Auto) 62.2 % Lymphocytes (%) (Auto) 27.5 % Monocytes (%) (Auto) 6.9 % Eosinophils (%) (Auto) 3.1 % Basophils (%) (Auto) 0.3 % Neutrophils # (Auto) 4.4 TH/MM3 Lymphocytes # (Auto) 1.9 TH/MM3 Monocytes # (Auto) 0.5 TH/MM3 Eosinophils # (Auto) 0.2 TH/MM3 Basophils # (Auto) 0.0 TH/MM3 CBC Comment DIFF FINAL Differential Comment Blood Urea Nitrogen 7 MG/DL Creatinine 0.82 MG/DL Random Glucose 74 MG/DL Total Protein 6.1 GM/DL Albumin 3.0 GM/DL Calcium Level 8.5 MG/DL Alkaline Phosphatase 72 U/L Aspartate Amino Transf (AST/SGOT) 15 U/L Alanine Aminotransferase (ALT/SGPT) 31 U/L Total Bilirubin 0.5 MG/DL Sodium Level 140 MEQ/L Potassium Level 3.4 MEQ/L Chloride Level 104 MEQ/L Carbon Dioxide Level 26.2 MEQ/L Anion Gap 10 MEQ/L Estimat Glomerular Filtration Rate 79 ML/MIN Triglycerides Level 104 MG/DL Cholesterol Level 146 MG/DL LDL Cholesterol 78 MG/DL HDL Cholesterol 46.9 MG/DL Cholesterol/HDL Ratio 3.11 RATIO Vitamin B12 Level 317 PG/ML 25-Hydroxy Vitamin D Total 24.0 ng/ML Thyroid Stimulating Hormone 3rd Gen 0.265 uIU/ML Vitals/IOs Vital Signs Date Time Temp Pulse Resp B/P (MAP) Pulse Ox O2 Delivery O2 Flow Rate FiO2 01/13/17 06:10 98.2 73 17 94/52 (66) 97 01/12/17 11:25 Room Air Intake and Output 01/13/17 01/13/17 01/13/17 07:59 15:59 23:59 Intake Total 240 ml Balance 240 ml Assessment & Plan Problem List: (1) Adjustment disorder with mixed disturbance of emotions and conduct ICD Codes: F43.25 - Adjustment disorder with mixed disturbance of emotions and conduct Status: Acute Assessment & Plan: We'll start Seroquel 50 mg at bedtime for psychosis. QTc interval a routine labs reviewed. Support, motivation and psychoeducation provided. Case discussed with nursing staff and outreach and education social worker. Assessment & Plan Estimated LOS: days Justification for Cont. Inpt. Patient has an elevated risk to decompensate at a lower level of care Teo Michelle MD Jan 13, 2017 11:34
[2017-01-13 17:39] LABS: HEMOGLOBIN A1b 1.4 %; HEMOGLOBIN Ao 87.2 %; HEMOGLOBIN LA1C 1.7 %; HEMOGLOBIN P3 3.2 %
--- NOTE | 2017-01-13 17:53 | EKG ---
Date Performed: 01/13/2017 Time Performed: 07:09:54 PTAGE: 36 years EKG: Sinus rhythm NORMAL ECG Compared to prior tracing no significant change PREVIOUS TRACING : 05/10/2016 10.12 DOCTOR: Gilberto Johnson Interpretating Date/Time 01/13/2017 17:51:14
[2017-01-13 18:24] VITALS: BP 126/80; PULSE 77; RESP 18; TEMP 97.9; O2SAT 96
[2017-01-13] MEDS: traZODone HCL 50 MG TAB PO PRN (20:58)
[2017-01-13] MEDS ORDERED: QUEtiapine FUMARATE 25 MG TAB PO SCH (21:00)
[2017-01-14 06:13] VITALS: BP 124/66; PULSE 70; RESP 16; TEMP 98.5; O2SAT 97
[2017-01-14] MEDS: CITALOPRAM HYDROBROMIDE 40 MG TAB PO SCH (08:53)
[2017-01-14] MEDS ORDERED: QUET1TAB7 PO (09:18)
[2017-01-14] MEDS ORDERED: CELE40TA PO (09:18)
--- NOTE | 2017-01-14 09:28 | HHI.DS ---
Psychiatry Discharge Summary Inpatient Psychiatric care?: Yes Advance Directive: No Reason Not Provided: has none Mental Health AdvanceDirective: No Health Care Proxy: No Admission Admission Date Jan 12, 2017 at 10:22 Admission Diagnosis: (1) Adjustment disorder with mixed disturbance of emotions and conduct ICD Code: F43.25 - Adjustment disorder with mixed disturbance of emotions and conduct (2) Substance-related disorder ICD Code: F19.99 - Other psychoactive substance use, unspecified with unspecified psychoactive substance-induced disorder Brief History This is a 36-year-old female who presented to our emergency department twice yesterday, the second time under a Price act for making suicidal threats. The patient is a poor historian and she gives a disjointed account of what happened to bring her back. She states that she and her mother were doing errands and that they are not good for each other. She admits to making suicidal statements. She was also agitated yesterday to the point where she required an intramuscular injection of antipsychotic, Zyprexa. Patient is sad today and unable to contract for safety. She describes symptoms of depressed mood, anhedonia, sleep disturbance, anxiety, intermittent suicidal ideation, appetite disturbance, social withdrawal, diminished self-esteem, and feelings of hopelessness and helplessness. Patient is noted to have been admitted in May this year and twice last year. Her medical record describes a history of bipolar disorder and self-medicating with methamphetamine and cannabis. Historically, patient has been treated with Celexa, trazodone and Vistaril. She states she has been off her medicines for months. Tobacco Use In Past 30 Days: Cigarettes But Not Daily Alcohol Use: 2-4 Times Per Month Hospital Course Patient was admitted in the 2600 units due to disorganized behavior, agitation, aggression, and suicidal ideation. Immediate psychiatric and psychosocial assessment were performed. Safety measures were taken. Patient was to started in Seroquel 25 mg at bedtime and citalopram 20 mg. Medication were titrated up as was necessary and patient tolerated. Patient showed good response to psychotropic regimen, group therapies and individual counseling. Is important to clarify the most probably initial irritability, aggressive behavior and psychosis was most probably secondary to amphetamine intoxication. During the stay in the hospital patient was initially calm, cooperative, and she integrated in group activities. He was compliant with medications, without significant side effects. Patient was widely educated about the importance of avoiding crystal meth and marijuana. At the moment of the discharge patient doesn't present any acute or significant psychiatric symptom. Results Blood Pressure 124 / 66 Vital Signs Date Time Temp Pulse Resp B/P (MAP) Pulse Ox O2 Delivery O2 Flow Rate FiO2 01/14/17 06:13 98.5 70 16 124/66 (85) 97 01/12/17 11:25 Room Air Laboratory Tests Test 01/11/17 12:20 01/11/17 15:23 01/13/17 08:52 Urine Amphetamines Screen POS (NEG) Urine Cannabinoids Screen POS (NEG) Blood Urea Nitrogen 5 MG/DL (7-18) Calcium Level 8.2 MG/DL (8.5-10.1) Potassium Level 3.0 MEQ/L (3.5-5.1) 3.4 MEQ/L (3.5-5.1) Total Protein 6.1 GM/DL (6.4-8.2) Albumin 3.0 GM/DL (3.4-5.0) Estimat Glomerular Filtration Rate 79 ML/MIN (>89) 25-Hydroxy Vitamin D Total 24.0 ng/ML (30-100) Thyroid Stimulating Hormone 3rd Gen 0.265 uIU/ML (0.358-3.740) Laboratory Results Test 01/13/17 08:52 Cholesterol Level 146 MG/DL (120-200) HDL Cholesterol 46.9 MG/DL (40.0-60.0) Hemoglobin A1c 4.9 % (4.3-6.0) LDL Cholesterol 78 MG/DL (0-99) Triglycerides Level 104 MG/DL (42-150) Summary of Procedures No procedures Pending results at discharge: No Medications # of Antipsychotic meds at D/C: 1 Approp Antipsych med options 1 - Minimum of three failed multiple trials of monotherapy. 2 - Documented plan to taper to monotherapy due to previous use of multiple meds OR cross-taper in progress at D/C. 3 - Documentation of augmentation of Clozapine. 4 - Justification other than those listed in allowable values 1-3, document here : Discharge Discharge Date: Jan 14, 2017 Discharge Diagnosis: (1) Adjustment disorder with mixed disturbance of emotions and conduct ICD Code: F43.25 - Adjustment disorder with mixed disturbance of emotions and conduct Status: Acute Mental Status Exam at Disch woman, age appearing, disheveled, calm, cooperative. Speech is low tone, normal volume. Mood is euthymic, affect is congruent with mood. Thought process is logical, coherent and relevant. Thought content is devoid of suicidal ideation, homicidal ideation, visual and auditory hallucinations, no paranoia or delusions present. Insight, impulse control, judgment are fair. Cognition is intact. Pt Condition on Discharge: Stable Discharge Disposition: Discharge Home Discharge Instructions Diet Instructions: As Tolerated, No Restrictions Activities you can perform: Weight Bearing as Patricia Scheduled Appointment: Discharge Time > 30 minutes Discharge/Advance Care Plan Health Problems: (1) Adjustment disorder with mixed disturbance of emotions and conduct Goals to promote your health * To prevent worsening of your condition and complications * To maintain your health at the optimal level Directions to meet your goals Take your medications as prescribed Follow your dietary instruction Follow activity as directed Keep your appointments as scheduled Take your immunizations and boosters as scheduled If your symptoms worsen call your PCP, if no PCP go to Urgent Care Center or Emergency Room For 06/12 questions related to your inpatient stay or results of tests pending at discharge, please contact Dr. Teo Michelle at Smoking is Dangerous to Your Health. Avoid second hand smoking Teo Michelle MD Jan 14, 2017 09:28
== END 2017-01-14 12:50 | disposition home or self-care (01) | DRG 882 ==
LOC: NEPJ 11:46 → NEDA 01-12 10:22 → H260 01-12 12:19
PROVIDERS: ADMIT Psychiatry & Neurology Psychiatry; ATTEND Psychiatry & Neurology Psychiatry
DX: F43.25 Adjustment disorder with mixed disturbance of emotions and conduct (principal); F15.988 Other stimulant use, unspecified with other stimulant-induced disorder; F12.90 Cannabis use, unspecified, uncomplicated; E87.6 Hypokalemia
CPT/HCPCS: 80048; 80053; 80061; 80307; 82306; 82607; 83036; 84443; 84703; 85025; 93005; 96372; J1200; J2060

== ENCOUNTER 2017-02-06 14:29 | Emergency (ER) | payer MEDICARE, OTHER ==
[~2017-02-06] VITALS: Ht 160 cm; Wt 82.0 kg
[~2017-02-06 14:29] MED LIST changes: +QUET1TAB7 PO; -TRAZ150T75 PO; -VIST50CA PO
[2017-02-06 14:34] VITALS: BP 164/79; PULSE 120; RESP 20; TEMP 97.9; O2SAT 97
[2017-02-06 15:16] VITALS: BP 125/75; PULSE 104; RESP 18; O2SAT 97
[2017-02-06] MEDS ORDERED: SODIUM CHLOR 0.9% 1000 ML INJ 1,000 ML IV ONE (15:45)
[2017-02-06 16:17] VITALS: O2SAT 99
[2017-02-06 16:41] LABS: AUTOMATED NEUTROPHIL # 5.5 TH/MM3 (1.8-7.7); BASOPHIL % 0.5 % (0.0-2.0); EOSINOPHIL # 0.2 TH/MM3 (0-0.4); EOSINOPHIL % 2.2 % (0.0-4.0); HEMATOCRIT 38.2 % (35.0-46.0); HEMO FLAGS DIFF FINAL; LYMPH % 26.5 % (9.0-44.0); LYMPHOCYTE # 2.2 TH/MM3 (1.0-4.8); MEAN CELL VOLUME 87.8 FL (80.0-100.0); MEAN CORPUSCULAR HEMOGLOBIN 30.5 PG (27.0-34.0); MEAN CORPUSCULAR HGB CONC 34.8 % (32.0-36.0); MONO % 5.1 % (0.0-8.0); NEUT % 65.7 % (16.0-70.0); PLATELET COUNT 328 TH/MM3 (150-450); RED BLOOD COUNT 4.36 MIL/MM3 (4.00-5.30); RED CELL DISTRIBUTION WIDTH 13.3 % (11.6-17.2); WHITE BLOOD COUNT 8.4 TH/MM3 (4.0-11.0)
[2017-02-06 16:51] LABS: ALT (GPT) 49 U/L (10-53); ANION GAP 6 MEQ/L (5-15); AST (GOT) 31 U/L (15-37); BICARBONATE 27.8 MEQ/L (21.0-32.0); BLOOD UREA NITROGEN 4 MG/DL (7-18); CHLORIDE 106 MEQ/L (98-107); GLOMERULAR FILTRATION RATE 78 ML/MIN (>89); POTASSIUM 3.1 MEQ/L (3.5-5.1); SODIUM (NA) 140 MEQ/L (136-145)
[2017-02-06 16:54] LABS: ALKALINE PHOSPHATASE 89 U/L (45-117); TOTAL BILIRUBIN ADULT 0.8 MG/DL (0.2-1.0)
[2017-02-06 16:57] LABS: ALCOHOL LESS THAN 3 MG/DL (0-5)
--- NOTE | 2017-02-06 17:36 | PD ---
HPI Chief Complaint: Psychiatric Symptoms Time Seen by Provider: 15:33 Travel History International Travel<30 days: No Contact w/Intl Traveler<30days: No Traveled to known affect area: No History of Present Illness HPI 36-year-old female arrives stating she wants see his psychiatrist. She has a history of drug abuse. Her mother dropped her off at a friend's house where he believes the patient probably use drugs including crystal meth. This was last night. This morning the mother received multiple phone calls from the daughter. Patient reports no suicidal ideation or plan to me however did to the mother. She denies homicidal ideation. She reports a history of prior suicide attempt. PFSH Past Medical History Arthritis: No Bipolar Disorder: Yes Anxiety: Yes Heart Rhythm Problems: No Cancer: No Cardiovascular Problems: No High Cholesterol: No Chest Pain: No Congestive Heart Failure: No Cerebrovascular Accident: No Diminished Hearing: No Endocrine: No Genitourinary: No Immune Disorder: No Musculoskeletal: Yes (right foot pain) Neurologic: No Psychiatric: Yes (PTSD, DISSOCIATIVE D/O) Reproductive: No Respiratory: No Immunizations Current: Yes Migraines: No Seizures: No ?: Not LMP: 01/25/17 : 1 Para: 1 Past Surgical History Abdominal Surgery: No Cardiac Surgery: No Section: Yes Cholecystectomy: Yes Ear Surgery: No Endocrine Surgery: No Eye Surgery: No Genitourinary Surgery: No Gynecologic Surgery: Yes (perforated uterus ) Oral Surgery: No Thoracic Surgery: No Other Surgery: Yes Social History Alcohol Use: Yes ( ) Tobacco Use: Yes Substance Use: No (denies ) Allergies-Medications (Allergen,Severity, Reaction): Coded Allergies: *MDRO Multi-Drug Resistant Organism (Verified Allergy, Unknown, 02/06/17) MRSA Foot Wound 08/2012 Reported Meds & Prescriptions Reported Meds & Active Scripts Active Quetiapine (Quetiapine Fumarate) 25 Mg Tab 50 Mg PO HS 30 Days Celexa (Citalopram Hydrobromide) 40 Mg Tab 40 Mg PO DAILY 30 Days Review of Systems ROS Limitations: Clinical Condition Physical Exam Narrative GENERAL: 36-year-old female well-nourished well-developed SKIN: Warm and dry. HEAD: Atraumatic. Normocephalic. EYES: Pupils equal and round. No scleral icterus. No injection or drainage. ENT: No nasal bleeding or discharge. Mucous membranes pink and moist. NECK: Trachea midline. No JVD. CARDIOVASCULAR: Regular rhythm. Heart rate about 105. RESPIRATORY: No accessory muscle use. Clear to auscultation. Breath sounds equal bilaterally. GASTROINTESTINAL: Abdomen soft, non-tender, nondistended. Hepatic and splenic margins not palpable. MUSCULOSKELETAL: Extremities without clubbing, cyanosis, or edema. No obvious deformities. NEUROLOGICAL: Awake and alert. No obvious cranial nerve deficits. Motor grossly within normal limits. Five out of 5 muscle strength in the arms and legs. Normal speech. PSYCHIATRIC: Anxious affect. Denies suicidal and homicidal ideations me. Data Data Last Documented VS Vital Signs Date Time Temp Pulse Resp B/P (MAP) Pulse Ox O2 Delivery O2 Flow Rate FiO2 02/06/17 16:17 99 02/06/17 15:16 104 18 Room Air 02/06/17 14:34 97.9 Vital signs reviewed, blood pressure 125/75 Orders Orders Complete Blood Count With Diff (02/06/17 15:39) Comprehensive Metabolic Panel (02/06/17 15:39) Oximetry (02/06/17 15:39) Iv Access Insert/Monitor (02/06/17 15:39) Ecg Monitoring (02/06/17 15:39) Psych Screen (02/06/17 15:39) Drug Screen, Random Urine (02/06/17 15:39) Alcohol (Ethanol) (02/06/17 15:39) Sodium Chlor 0.9% 1000 Ml Inj (Ns 1000 M (02/06/17 15:45) Diet Regular Basic (02/06/17 Dinner) Labs Laboratory Tests Test 02/06/17 16:00 White Blood Count 8.4 TH/MM3 Red Blood Count 4.36 MIL/MM3 Hemoglobin 13.3 GM/DL Hematocrit 38.2 % Mean Corpuscular Volume 87.8 FL Mean Corpuscular Hemoglobin 30.5 PG Mean Corpuscular Hemoglobin Concent 34.8 % Red Cell Distribution Width 13.3 % Platelet Count 328 TH/MM3 Mean Platelet Volume 7.9 FL Neutrophils (%) (Auto) 65.7 % Lymphocytes (%) (Auto) 26.5 % Monocytes (%) (Auto) 5.1 % Eosinophils (%) (Auto) 2.2 % Basophils (%) (Auto) 0.5 % Neutrophils # (Auto) 5.5 TH/MM3 Lymphocytes # (Auto) 2.2 TH/MM3 Monocytes # (Auto) 0.4 TH/MM3 Eosinophils # (Auto) 0.2 TH/MM3 Basophils # (Auto) 0.0 TH/MM3 CBC Comment DIFF FINAL Differential Comment Blood Urea Nitrogen 4 MG/DL Creatinine 0.83 MG/DL Random Glucose 97 MG/DL Total Protein 7.0 GM/DL Albumin 3.6 GM/DL Calcium Level 8.6 MG/DL Alkaline Phosphatase 89 U/L Aspartate Amino Transf (AST/SGOT) 31 U/L Alanine Aminotransferase (ALT/SGPT) 49 U/L Total Bilirubin 0.8 MG/DL Sodium Level 140 MEQ/L Potassium Level 3.1 MEQ/L Chloride Level 106 MEQ/L Carbon Dioxide Level 27.8 MEQ/L Anion Gap 6 MEQ/L Estimat Glomerular Filtration Rate 78 ML/MIN Urine Opiates Screen NEG Urine Barbiturates Screen NEG Urine Amphetamines Screen POS Urine Benzodiazepines Screen POS Urine Cocaine Screen NEG Urine Cannabinoids Screen POS Ethyl Alcohol Level LESS THAN 3 MG/DL MDM Medical Decision Making Medical Screen Exam Complete: Yes Emergency Medical Condition: Yes Medical Record Reviewed: Yes Differential Diagnosis Altered mental status/psychosis due to infection/environmental exposure/ metabolic abnormality, polypharmacy, alcohol abuse/intoxication, illicit or prescribed drug abuse, malingering/secondary gain, non-organic psychiatric disease Narrative Course CBC & BMP Diagram 02/06/17 16:00 Total Protein 7.0, Albumin 3.6, Calcium Level 8.6, Alkaline Phosphatase 89, Aspartate Amino Transf (AST/SGOT) 31, Alanine Aminotransferase (ALT/SGPT) 49, Total Bilirubin 0.8 Drug screen positive for amphetamines, benzodiazepines and cannabinoids Patient has received IV fluids and potassium. She is here voluntarily. Psychiatry screen has been ordered. Diagnosis Primary Impression: Adjustment disorder with mixed disturbance of emotions and conduct Additional Impressions: Polysubstance (including opioids) dependence, daily use Substance-related disorder Antwon Capellan MD Feb 06, 2017 17:36
== END 2017-02-06 22:03 | disposition home or self-care (01) ==
LOC: NEPD 14:29
DX: F43.25 Adjustment disorder with mixed disturbance of emotions and conduct (principal); F11.20 Opioid dependence, uncomplicated; Z72.0 Tobacco use
CPT/HCPCS: 80053; 80307; 85025; 96360; 99284; J7030

== ENCOUNTER 2017-11-30 14:00 | Inpatient (IN) ==
--- NOTE | 2017-11-30 14:24 | ED ---
HPI General Chief complaint: Skin/Abscess/Foreign Body Stated complaint: Medical Time Seen by Provider: 11/30/17 14:24 Source: patient Mode of arrival: EMS Limitations: other History of Present Illness HPI narrative: 37-year-old female with history of PTSD, bipolar disorder, long- standing history of polysubstance abuse, presents emergency department for evaluation of an injury sustained to her right great toe. Patient is a very poor historian. She is clearly under the influence of an unknown substance at this time. She tells me that she dropped a cast iron farrar on her toe and then she later tells me that she hit her toe on the table. She believes that she did this today. She reports for pain of the right great toe. Pain is constant , throbbing. She states she is unable to move it or touch it without severe pain. Related Data Home Medications Medication Instructions Recorded Confirmed dextroamphetamine-amphetamine 15 mg PO DAILY 11/30/17 11/30/17 [Adderall] escitalopram oxalate [Lexapro] 20 mg PO DAILY 11/30/17 11/30/17 Allergies Allergy/AdvReac Type Severity Reaction Status Date / Time *MDRO Multi-Drug Resistant Allergy Unknown Anaphylaxis Uncoded 11/30/17 14:18 Organism Review of Systems Except as stated in HPI: all other systems reviewed are negative PMFSH History History Provided By: Patient Medical History Medical History ADHD (Acute) Anxiety (Acute) Depressed (Acute) Drug usage (Acute) PTSD (post-traumatic stress disorder) (Acute) Social History Social History Substance History: Unable to Obtain Second Hand Smoke Exposure: No Smoking Status: Current every day smoker Tobacco Type: Cigarettes How Often Do You Have a Drink Containing Alcohol: Unable to Obtain Recent Travel in [place] within the Last 8 Weeks: No Recent Out of Country Travel within the Last 8 Weeks: No Exam Narrative Exam Narrative: GENERAL: Well-nourished but poorly kempt female patient, with jerking body movements, bizarre behavior, appears without distress. SKIN: Focused skin assessment warm/dry. There is a laceration across the dorsal aspect of the right great toe with large amount of debris, hair, dirt, Dried bloody drainage. There is erythema extending on the dorsum of the foot to the ankle. Multiple scabbed lesions on the extremities and face. Varying size of ecchymosis and different stages of healing on the extremities as well. HEAD: Patient has patches of missing hair on her scalp. She is pulling this out in the emergency department. Normocephalic. EYES: Pupils equal and round. No scleral icterus. No injection or drainage. ENT: No nasal bleeding or discharge. Mucous membranes pink and moist. NECK: Trachea midline. No JVD. CARDIOVASCULAR: Tachycardic rate and rhythm. No murmur appreciated. RESPIRATORY: No accessory muscle use. Clear to auscultation. Breath sounds equal bilaterally. GASTROINTESTINAL: Abdomen soft, non-tender, nondistended. Hepatic and splenic margins not palpable. MUSCULOSKELETAL: No obvious deformities. No clubbing. No cyanosis. No edema. NEUROLOGICAL: Awake. Unable to assess cranial nerves patient moves all extremities. Normal speech. PSYCHIATRIC: Bizarre affect. Patient appears to be under the influence of unknown substance, despite her denying this. Course Initial Documented Vital Signs Temperature 98.6 F 11/30/17 14:19 Pulse Rate 129 H 11/30/17 14:19 Respiratory Rate 20 11/30/17 14:19 Blood Pressure 131/79 11/30/17 14:19 Pulse Oximetry 98 11/30/17 14:19 Last Documented Vital Signs Temperature 98.6 F 11/30/17 14:19 Pulse Rate 95 H 11/30/17 17:43 Respiratory Rate 16 11/30/17 17:43 Blood Pressure 131/79 11/30/17 14:19 Pulse Oximetry 97 11/30/17 17:43 Medical Decision Making PORTILLO Attestation PORTILLO supervised visit: Yes [facility] Narrative Medical decision making narrative: 37-year-old female presents emergency department for evaluation right great toe injury. Patient has very bizarre affect. She is seemingly under the influence of an unknown substance. Nursing staff is unable to start IV initially due to patient not cooperating. She is given IM Ativan. X-ray imaging shows an intra-articular fracture. This is open. The wound is extremely contaminated. I discussed the patient with Dr. Kennedy, lockstitch lining setter virtualization engineer. He requests that I irrigate the wound and collect culture.. I discussed this with the patient and strongly urged her to cooperate and allow us to get an IV so she can get IV fluids and additional medication to help her calm down. She agrees with this plan. Lab work is sent. Patient is given IV vancomycin. The wound is copiously irrigated and cleansed. Differential Diagnosis Differential Diagnosis: Fracture open versus closed versus infected wound versus sepsis Medical Records Medical records reviewed: Yes I reviewed the patient's medical records. Lab Data Lab results reviewed: Yes I reviewed the patient's lab results. Result diagrams: 11/30/17 17:30 11/30/17 17:30 Lab Results 11/30/17 11/30/17 11/30/17 Range/Units 17:30 17:30 17:30 WBC 12.5 H (4.0-11.0) th/mm3 RBC 4.44 (4.00-5.30) mil/mm3 Hgb 13.5 (11.6-15.3) gm/dL Hct 40.0 (35.0-46.0) % MCV 90.2 (80.0-100.0) fL MCH 30.5 (27.0-34.0) pg MCHC 33.8 (32.0-36.0) % RDW 13.1 (11.6-17.2) % Plt Count 300 (150-450) th/mm3 MPV 8.2 (7.0-11.0) fL Neut % (Auto) 87.2 H (16.0-70.0) % Lymph % (Auto) 8.0 L (9.0-44.0) % [facility] % (Auto) 4.4 (0.0-8.0) % Eos % (Auto) 0.1 (0.0-4.0) % Baso % (Auto) 0.3 (0.0-2.0) % Neut # (Auto) 10.9 H (1.8-7.7) th/mm3 Lymph # (Auto) 1.0 (1.0-4.8) th/mm3 [facility] # (Auto) 0.6 (0.0-0.9) th/mm3 Eos # (Auto) 0.0 (0.0-0.4) th/mm3 Baso # (Auto) 0.0 (0.0-0.2) th/mm3 WBC Differential . Differential Comment Auto diff final Sodium 143 (136-145) meq/L Potassium 3.3 L (3.5-5.1) meq/L Chloride 109 H (98-107) meq/L Carbon Dioxide 23.7 (21.0-32.0) meq/L Anion Gap 10 (5-15) meq/L BUN 29 H (7-18) mg/dL Creatinine 2.40 H (0.50-1.00) mg/dL Estimated GFR 23 L (>89) mL/min Random Glucose 113 H (74-106) mg/dL Calcium 8.3 L (8.5-10.1) mg/dL Total Creatine Kinase Cancelled Imaging Data Radiologist's impression: Foot X-Ray 11/30/17 14:24 CONCLUSION: 1. Nondisplaced intra-articular fracture involving the distal portion of the first proximal phalanx. 2. Nonspecific soft tissue swelling adjacent to the fifth toe. Discharge Plan Discharge Disposition Patient Disposition: 30 Still Patient Discharge Details Diagnosis: Open fracture of toe of right foot Physicians Team ED Provider: Costa Loera ED Midlevel Provider: Gin Madden Primary Care Provider: Dashawn Franz Other Providers: Horacio Kennedy Rxs /Orders / Referrals /Forms Prescriptions: No Action dextroamphetamine-amphetamine [Adderall] 15 mg Tablet 15 mg PO DAILY RF: 0 escitalopram oxalate [Lexapro] 10 mg Tablet 20 mg PO DAILY RF: 0 Discharge Interventions Interventions: Vital Signs Last Done: 11/30/17 17:43 Status ED Status: With Doctor
[2017-11-30] MEDS ORDERED: Sod Chloride 0.9% Inj 1,000 ML IV.SIG ONE ×2 (14:35→17:30)
--- NOTE | 2017-11-30 16:25 | XR ---
EXAM DATE: 11/30/2017 4:19 PM EDT AGE/SEX: 37 years / Female INDICATIONS: Right 1st toe was "smashed" by a 75 pound weight CLINICAL DATA: This is the patient's initial encounter. Patient reports that signs and symptoms have been present for 1 day and indicates a pain score of 10/10. MEDICAL/SURGICAL HISTORY: None. None. COMPARISON: [facility] [place], FOOT RIGHT COMPLETE ([id number]), 08/16/2012. . FINDINGS: There is an intra-articular nondisplaced fracture involving the distal portion of the first proximal phalanx. The fracture line extends into the DIP joint. The rest the bony structures are grossly intac t. There is some nonspecific soft tissue swelling adjacent to the fifth toe. CONCLUSION: 1. Nondisplaced intra-articular fracture involving the distal portion of the first proximal phalanx. 2. Nonspecific soft tissue swelling adjacent to the fifth toe. Electronically signed by: Reginald Wilson MD 11/30/2017 4:23 PM EDT
[2017-11-30] MEDS ORDERED: Vancomycin Inj 1,000 MG in Sodium Chlor 0.9% Inj 250 ML IV.SIG ONE (16:27)
[2017-11-30 17:49] LABS: Baso % (Auto) 0.3 % (0.0-2.0); Eos % (Auto) 0.1 % (0.0-4.0); Hemoglobin 13.5 gm/dL (11.6-15.3); Mean Corpuscular HGB Conc 33.8 % (32.0-36.0); Mean Corpuscular Hemoglobin 30.5 pg (27.0-34.0); Mean Corpuscular Volume 90.2 fL (80.0-100.0); Mean Platelet Volume 8.2 fL (7.0-11.0); Mono # (Auto) 0.6 th/mm3 (0.0-0.9); Mono % (Auto) 4.4 % (0.0-8.0); Neut # (Auto) 10.9 th/mm3 (1.8-7.7); Neut % (Auto) 87.2 % (16.0-70.0); Platelet Count 300 th/mm3 (150-450); Red Blood Count 4.44 mil/mm3 (4.00-5.30); Red Cell Distribution Width 13.1 % (11.6-17.2); White Blood Count 12.5 th/mm3 (4.0-11.0)
[2017-11-30 18:13] LABS: Calcium 8.3 mg/dL (8.5-10.1); Carbon Dioxide 23.7 meq/L (21.0-32.0); Potassium 3.3 meq/L (3.5-5.1)
[2017-11-30 18:38] LABS: CKMB Percent 0.8 % (0.0-4.0); Creatine Kinase MB 6.5 ng/mL (0.5-3.6)
[2017-11-30] MEDS: Sod Chloride 0.9% Inj 1,000 ML IV.CONT SCH (19:38)
[2017-11-30] MEDS ORDERED: Bisacodyl 10 MG Supp RECTAL PRN (20:07)
[2017-11-30] MEDS ORDERED: Temazepam 15 MG Capsule PO PRN (20:07)
[2017-11-30] MEDS ORDERED: Acetaminophen 325 MG Tablet PO PRN (20:07)
--- NOTE | 2017-11-30 20:18 | P.HP ---
History of Present Illness Service: [facility] Primary Care Physician: Dashawn Franz DO History of Present Illness: 37-year-old female with past medical history significant for PTSD, bipolar disorder and long-standing history of polysubstance abuse presents to the emergency department for the evaluation of a right great toe laceration. The patient is clearly altered on an unknown substance and denies doing any drugs within the last few days. States she lasted methamphetamine last week. 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 The patient is nodding into sleep during her interview. She is an extremely poor historian. Inpatient Certification: I certify that the inpatient services were ordered in accordance with Medicare regulations governing the order. This includes certification that hospital inpatient services are reasonable and necessary and in the case of services not specified as inpatient-only under 42 CFR 419.22(n), that they are appropriately provided as inpatient services in accordance to with the 2-midnight benchmark under 43 CFR 412.3(e) Estimated Total Length of Stay (Days): 2 Plans for Post Hospital Care: Not yet determined Review of Systems Limited by patient's clinical condition PMFSH - History History Provided By: Patient - Medical / Surgical Hx Neg / Unobtainable Surgical History: Unable to Obtain - Medical History Medical History: Medical History (Last Reviewed 11/30/17 @ 17:36 by SOFIA Mendiola) ADHD Anxiety Depressed Drug usage PTSD (post-traumatic stress disorder) - Tobacco History Second Hand Smoke Exposure: No Tobacco Use In Past 30 Days: Yes Smoking Status: Current every day smoker Tobacco Type: Cigarettes - Alcohol History How Often Do You Have a Drink Containing Alcohol: Unable to Obtain - Substance Use History Substance History: Unable to Obtain - Travel History Recent Travel in the [place] Within the Last 8 Weeks: No Recent Travel Out of the Country Within the Last 8 Weeks: No - Immunization History Tetanus Immunization: Unsure Hx Influenza Vaccine This Season: No Medications and Allergies Active Medications: Active Medications Al Hydroxide/Mg Hydroxide (Milk Of Magndanna Liq) 30 ml PO Q12H PRN PRN Reason: Mild Constipation Bisacodyl (Dulcolax Supp) 10 mg RECTAL DAILY PRN PRN Reason: SEVERE CONSITIPATION Sodium Chloride (Ns Inj) 1,000 mls @ 100 mls/hr IV.CONT .Q10H [facility] Last Admin: 11/30/17 19:38 Dose: 100 mls/hr Lactulose (Lactulose Liq) 30 ml PO DAILY PRN PRN Reason: SEVERE CONSITIPATION Ondansetron HCl (Zofran Inj) 4 mg IV.PUSH Q6H PRN PRN Reason: NAUSEA OR VOMITING Potassium Chloride (K-Dur) 40 meq PO ONCE ONE Stop: 11/30/17 20:11 Senna/Docusate Sodium (Yanira-Colace) 1 tab PO BID [facility] Sennosides (Senokot) 17.2 mg PO Q12H PRN PRN Reason: Moderate Constipation Allergies Allergy/AdvReac Type Severity Reaction Status Date / Time *MDRO Multi-Drug Resistant Allergy Unknown Anaphylaxis Uncoded 11/30/17 14:18 Organism Home Medications Medication Instructions Recorded Confirmed Type dextroamphetamine-amphetamine 15 mg PO DAILY 11/30/17 11/30/17 History [Adderall] escitalopram oxalate [Lexapro] 20 mg PO DAILY 11/30/17 11/30/17 History Exam Vital signs: Vital Signs 11/30/17 14:19 11/30/17 17:43 Temperature 98.6 F Pulse Rate 129 H 95 H Respiratory Rate 20 16 Blood Pressure 131/79 Pulse Oximetry 98 97 Intake & Output 11/30/17 11/30/17 12/01/17 06:59 18:59 06:59 Weight 82.1 kg Narrative: Gen.: No acute distress. Awakens with startle response repeatedly. Head: Normocephalic. Atraumatic. EENT: Pupils equal round and reactive to light. Nose without drainage. Airway intact. Cardiovascular: Regular rate and rhythm. No murmurs, rubs or gallops. Respiratory: Lungs clear to auscultation bilaterally. No wheezes or rhonchi. Abdomen: Soft, nontender, nondistended. No peritoneal signs. Musculoskeletal: No gross deformities. No edema. Skin: 3 cm laceration on the dorsal aspect of the right great toe. Multiple small bruises scattering bilateral lower extremities. Neuro: Sensory and motor grossly intact. Cranial nerves II through XII grossly intact. Results - Labs CBC & Chem 7: 11/30/17 17:30 11/30/17 17:30 Labs: Laboratory Results - last 24 hr 11/30/17 11/30/17 11/30/17 17:30 17:30 17:30 WBC 12.5 H RBC 4.44 Hgb 13.5 Hct 40.0 MCV 90.2 MCH 30.5 MCHC 33.8 RDW 13.1 Plt Count 300 MPV 8.2 Neut % (Auto) 87.2 H Lymph % (Auto) 8.0 L Murray % (Auto) 4.4 Eos % (Auto) 0.1 Baso % (Auto) 0.3 Neut # (Auto) 10.9 H Lymph # (Auto) 1.0 Murray # (Auto) 0.6 Eos # (Auto) 0.0 Baso # (Auto) 0.0 WBC Differential . Differential Comment Auto diff final Sodium 143 Potassium 3.3 L Chloride 109 H Carbon Dioxide 23.7 Anion Gap 10 BUN 29 H Creatinine 2.40 H Estimated GFR 23 L Random Glucose 113 H Calcium 8.3 L Total Creatine Kinase 792 H Cancelled CK-MB (CK-2) 6.5 H CK-MB (CK-2) % 0.8 - Imaging Impressions Foot X-Ray 11/30/17 14:24 CONCLUSION: 1. Nondisplaced intra-articular fracture involving the distal portion of the first proximal phalanx. 2. Nonspecific soft tissue swelling adjacent to the fifth toe. Caprini VTE Risk Assessment Caprini VTE Risk Assessment: No/Low Risk (score <= 1) Caprini Risk Assessment Model: Point Value = 1 Point Value = 2 Point Value = 3 Point Value = 5 Age 41-60 Minor surgery BMI > 25 kg/m2 Swollen legs Varicose veins or History of unexplained or recurrent spontaneous Oral contraceptives or hormone replacement Sepsis (< 1 month) Serious lung disease, including pneumonia (< 1 month) Abnormal pulmonary function Acute myocardial infarction Congestive heart failure (< 1 month) History of inflammatory bowel disease Medical patient at bed rest Age 61-74 Arthroscopic surgery Major open surgery (> 45 min) Laparoscopic surgery (> 45 min) Malignancy Confined to bed (> 72 hours) Immobilizing plaster cast Central venous access Age >= 75 History of VTE Family history of VTE Factor V Leiden Prothrombin [id number] Lupus anticoagulant Anticardiolipin antibodies Elevated serum homocysteine Heparin-induced thrombocytopenia Other congenital or acquired thrombophilia Stroke (< 1 month) Elective arthroplasty Hip, pelvis, or leg fracture Acute spinal cord injury (< 1 month) Prophylaxis Regimen: Total Risk Factor Score Risk Level Prophylaxis Regimen 0-1 Low Early ambulation 2 Moderate Order ONE of the following: *Sequential Compression Device (SCD) *Heparin 5000 units SQ BID 3-4 Higher Order ONE of the following medications: *Heparin 5000 units SQ TID *Enoxaparin/Lovenox 40 mg SQ daily (WT < 150 kg, CrCl > 30 mL/min) *Enoxaparin/Lovenox 30 mg SQ daily (WT < 150 kg, CrCl > 10-29 mL/min) *Enoxaparin/Lovenox 30 mg SQ BID (WT < 150 kg, CrCl > 30 mL/min) AND/OR *Sequential Compression Device (SCD) 5 or more Highest Order ONE of the following medications: *Heparin 5000 units SQ TID (Preferred with Epidurals) *Enoxaparin/Lovenox 40 mg SQ daily (WT < 150 kg, CrCl > 30 mL/min) *Enoxaparin/Lovenox 30 mg SQ daily (WT < 150 kg, CrCl > 10-29 mL/min) *Enoxaparin/Lovenox 30 mg SQ BID (WT < 150 kg, CrCl > 30 mL/min) AND *Sequential Compression Device (SCD) Assessment and Plan - Plan Assessment/plan: 1. Right great toe fracture X-ray of the foot significant for nondisplaced intra-articular fracture involving the distal portion of the first proximal phalanx Podiatry consulted, appreciate recommendations Vancomycin/Zosyn given contamination of the wound and unknown timeframe 2. Altered mental status/polysubstance abuse Urine drug screen pending 3. Hypokalemia Status post p.o. repletion Monitor BMP FEN N.p.o. Electrolytes: As above NS at 100 cc/hour
[2017-11-30] MEDS ORDERED: Vancomycin Consult Pharmacy 1 EACH OTHER SCH (21:00)
[2017-11-30 21:04] LABS: Amphetamine Screen,Urine Pos (Neg); Barbiturate Screen,Urine Neg (Neg); Cannabinoid Screen,Urine Neg (Neg); Cocaine Screen,Urine Pos (Neg)
[2017-11-30 21:20] LABS: Opiate Screen,Urine Pos (Neg)
[2017-12-01] MEDS: Piperacil/Tazo 2.25 GM Premix 50 ML IV.SIG SCH ×5 (02:04→20:22)
[2017-12-01] MEDS: Senna/Docusate Sodium 8.6/50 MG Tablet PO SCH ×3 (02:04→20:22)
[2017-12-01 03:05] LABS: Bacteria,Urine Rare /hpf; Bilirubin,Urine Negative (Negative); Clarity,Urine Cloudy (Clear); Color,Urine Amber (Yellw/Straw); Glucose,Urine (UA) Negative (Negative); Hyaline Casts,Urine 17 /lpf (0-3); Leukocyte Esterase,Urine Negative (Negative); Mucus,Urine Many /lpf (Occasional); Nitrite,Urine Negative (Negative); Specific Gravity,Urine 1.027 (1.002-1.035); Squamous Epithelial Cell,Urine 9 /hpf (0-5)
[2017-12-01 06:59] LABS: Baso % (Auto) 0.4 % (0.0-2.0); Eos # (Auto) 0.2 th/mm3 (0.0-0.4); Eos % (Auto) 2.4 % (0.0-4.0); Hematocrit 37.8 % (35.0-46.0); Hemoglobin 12.7 gm/dL (11.6-15.3); Lymph # (Auto) 2.6 th/mm3 (1.0-4.8); Lymph % (Auto) 26.2 % (9.0-44.0); Mean Corpuscular HGB Conc 33.6 % (32.0-36.0); Mean Corpuscular Hemoglobin 30.4 pg (27.0-34.0); Mean Corpuscular Volume 90.2 fL (80.0-100.0); Mean Platelet Volume 8.6 fL (7.0-11.0); Mono # (Auto) 0.9 th/mm3 (0.0-0.9); Mono % (Auto) 9.4 % (0.0-8.0); Neut # (Auto) 6.1 th/mm3 (1.8-7.7); Neut % (Auto) 61.6 % (16.0-70.0); Platelet Count 278 th/mm3 (150-450); Red Blood Count 4.19 mil/mm3 (4.00-5.30); Red Cell Distribution Width 13.6 % (11.6-17.2); White Blood Count 9.9 th/mm3 (4.0-11.0)
[2017-12-01] MEDS ORDERED: Vancomycin Inj 1,000 MG in Sodium Chlor 0.9% Inj 250 ML IV.SIG SCH (07:00)
[2017-12-01 07:18] LABS: Calcium 7.9 mg/dL (8.5-10.1); Carbon Dioxide 20.3 meq/L (21.0-32.0); Potassium 3.6 meq/L (3.5-5.1); Vancomycin,Random 8.3 Comment
[2017-12-01] MEDS: Sod Chloride 0.9% Inj 1,000 ML IV.CONT SCH ×3 (08:12→20:23)
--- NOTE | 2017-12-01 10:19 | P.PN ---
Subjective Interval history: Follow up for right great toe laceration. Patient is currently doing well, resting in bed. No fever or chills. She was initially very drowsy but as we talked she became more alert. Physical Exam Vital signs: Vital Signs 11/30/17 14:19 11/30/17 17:43 11/30/17 20:00 Temperature 98.6 F 97.6 F Pulse Rate 129 H 95 H 97 H Respiratory Rate 20 16 19 Blood Pressure 131/79 115/61 Pulse Oximetry 98 97 96 12/01/17 00:00 12/01/17 04:00 12/01/17 08:00 Temperature 97.4 F L 97.5 F L 97.8 F Pulse Rate 92 H 92 H 97 H Respiratory Rate 17 17 20 Blood Pressure 99/56 L 116/74 107/56 L Pulse Oximetry 96 97 95 Intake & Output 11/30/17 12/01/17 12/01/17 18:59 06:59 18:59 Intake Total 1050 / 1050 Balance 1050 / 1050 Weight 82.1 kg 74.5 kg Intake: IV 1050 / 1050 NS Inj 1,000 ML @ 100 mls/hr IV 1000 / 1000 .CONT .Q10H [facility] Rx#:[id number] Zosyn 2.25 GM Premix 50 ML @ 50 / 50 100 mls/hr IV.SIG Q6H [facility] Rx#: [id number] Other: # Voids 3 Narrative: GENERAL: Alert, NAD. SKIN: Warm and dry. HEAD: Normocephalic. EYES: No scleral icterus. No injection or drainage. NECK: Supple, trachea midline. No JVD or lymphadenopathy. CARDIOVASCULAR: Regular rate and rhythm without murmurs, gallops, or rubs. RESPIRATORY: Breath sounds equal bilaterally. No accessory muscle use. GASTROINTESTINAL: Abdomen soft, non-tender, nondistended. MUSCULOSKELETAL: No cyanosis, or edema. Right great toe covered in dressing. There is some dried blood on her foot. BACK: Nontender without obvious deformity. No CVA tenderness. Results - Labs CBC & Chem 7: 12/01/17 05:50 12/01/17 05:15 Laboratory Results - last 24 hr 11/30/17 11/30/17 11/30/17 17:30 17:30 17:30 WBC 12.5 H RBC 4.44 Hgb 13.5 Hct 40.0 MCV 90.2 MCH 30.5 MCHC 33.8 RDW 13.1 Plt Count 300 MPV 8.2 Neut % (Auto) 87.2 H Lymph % (Auto) 8.0 L [place] % (Auto) 4.4 Eos % (Auto) 0.1 Baso % (Auto) 0.3 Neut # (Auto) 10.9 H Lymph # (Auto) 1.0 [place] # (Auto) 0.6 Eos # (Auto) 0.0 Baso # (Auto) 0.0 WBC Differential . Differential Comment Auto diff final Sodium 143 Potassium 3.3 L Chloride 109 H Carbon Dioxide 23.7 Anion Gap 10 BUN 29 H Creatinine 2.40 H Estimated GFR 23 L Random Glucose 113 H Calcium 8.3 L Total Creatine Kinase 792 H Cancelled CK-MB (CK-2) 6.5 H CK-MB (CK-2) % 0.8 Beta HCG, Qual Urine Color Urine Clarity Urine pH Ur Specific [place] Urine Protein Urine Glucose (UA) Urine Ketones Urine Occult Blood Urine Nitrate Urine Bilirubin Urine Urobilinogen Ur Leukocyte Esterase Urine RBC Urine WBC Ur Squamous Epith Cells Urine Bacteria Hyaline Casts WBC Casts Urine Mucus Micro UA Comment Urine Culture Comments Random Vancomycin Urine Opiates Screen Ur Barbiturates Screen Ur Amphetamines Screen U Benzodiazepines Scrn Urine Cocaine Screen U Cannabinoids Screen 11/30/17 12/01/17 12/01/17 20:16 02:40 05:15 WBC RBC Hgb Hct MCV MCH MCHC RDW Plt Count MPV Neut % (Auto) Lymph % (Auto) [place] % (Auto) Eos % (Auto) Baso % (Auto) Neut # (Auto) Lymph # (Auto) [place] # (Auto) Eos # (Auto) Baso # (Auto) WBC Differential Differential Comment Sodium 143 Potassium 3.6 Chloride 111 H Carbon Dioxide 20.3 L Anion Gap 12 BUN 26 H Creatinine 0.99 Estimated GFR 63 L Random Glucose 59 L Calcium 7.9 L Total Creatine Kinase CK-MB (CK-2) CK-MB (CK-2) % Beta HCG, Qual Urine Color Melinda Urine Clarity Cloudy H Urine pH 5.0 Ur Specific [place] 1.027 Urine Protein 30 H Urine Glucose (UA) Negative Urine Ketones 20 Urine Occult Blood Negative Urine Nitrate Negative Urine Bilirubin Negative Urine Urobilinogen 2.0 H Ur Leukocyte Esterase Negative Urine RBC 4 H Urine WBC 24 H Ur Squamous Epith Cells 9 Urine Bacteria Rare H Hyaline Casts 17 WBC Casts 31 Urine Mucus Many H Micro UA Comment Culture indicated Urine Culture Comments Culture indicated Random Vancomycin 8.3 Urine Opiates Screen Pos H Ur Barbiturates Screen Neg Ur Amphetamines Screen Pos H U Benzodiazepines Scrn Neg Urine Cocaine Screen Pos H U Cannabinoids Screen Neg 12/01/17 12/01/17 05:15 05:50 WBC 9.9 RBC 4.19 Hgb 12.7 Hct 37.8 MCV 90.2 MCH 30.4 MCHC 33.6 RDW 13.6 Plt Count 278 MPV 8.6 Neut % (Auto) 61.6 Lymph % (Auto) 26.2 [place] % (Auto) 9.4 H Eos % (Auto) 2.4 Baso % (Auto) 0.4 Neut # (Auto) 6.1 Lymph # (Auto) 2.6 [place] # (Auto) 0.9 Eos # (Auto) 0.2 Baso # (Auto) 0.0 WBC Differential . Differential Comment Auto diff final Sodium Potassium Chloride Carbon Dioxide Anion Gap BUN Creatinine Estimated GFR Random Glucose Calcium Total Creatine Kinase CK-MB (CK-2) CK-MB (CK-2) % Beta HCG, Qual Less than 1.0 Urine Color Urine Clarity Urine pH Ur Specific [place] Urine Protein Urine Glucose (UA) Urine Ketones Urine Occult Blood Urine Nitrate Urine Bilirubin Urine Urobilinogen Ur Leukocyte Esterase Urine RBC Urine WBC Ur Squamous Epith Cells Urine Bacteria Hyaline Casts WBC Casts Urine Mucus Micro UA Comment Urine Culture Comments Random Vancomycin Urine Opiates Screen Ur Barbiturates Screen Ur Amphetamines Screen U Benzodiazepines Scrn Urine Cocaine Screen U Cannabinoids Screen Microbiology 11/30/17 19:43 Wound - Toe Gram Stain - Final - Imaging Impressions Foot X-Ray 11/30/17 14:24 CONCLUSION: 1. Nondisplaced intra-articular fracture involving the distal portion of the first proximal phalanx. 2. Nonspecific soft tissue swelling adjacent to the fifth toe. Assessment and Plan - Plan 37-year-old female with past medical history significant for PTSD, bipolar disorder and long-standing history of polysubstance abuse presents to the emergency department on 11/30/2017 for the evaluation of a right great toe laceration. X-ray in the emergency department shows nondisplaced intra- articular fracture involving the distal portion of the proximal phalanx. Podiatry was consulted. Right great toe fracture -Patient is currently n.p.o. MRI pending. Podiatry plans to operate if needed today. -Currently patient is on acetaminophen and Amo PRN for pain. -Given patient's high risk, will continue vancomycin and Zosyn for now. -Depending on surgical outcome, patient may be able to go on oral antibiotics. Acute kidney injury -Creatinine 2.40 on admission. Improved to 0.99. -Continue IV fluid today. Will discontinue later today or tomorrow. History of polysubstance abuse History of IV drug use -Patient is counseled on drug abuse. She appears to be motivated to quit. -Drug screen was positive for opioids, amphetamines, cocaine. Full code. Ambulation. will consider Lovenox after surgery.
[2017-12-01] MEDS: Vancomycin Inj 1,000 MG in Sodium Chlor 0.9% Inj 250 ML IV.SIG SCH ×2 (11:50→22:05)
[2017-12-01] MEDS ORDERED: Lidocaine PF 1% Inj 5 ML Syringe INFILTRATN ONE (13:46)
--- NOTE | 2017-12-01 14:39 | P.CON ---
History of Present Illness Service: Foot and Ankle Surgery/Podiatry Consult date: 12/01/17 Reason for Consult: Right hallux open fracture Primary Care Provider: Dashawn Franz DO Chief Complaint: Right hallux open fracture History of Present Illness: Podiatry consulted for this 37-year-old female with history of PTSD, bipolar disorder, and long-standing history of polysubstance abuse, who presents the emergency department for evaluation of an injury she states she dropped a stone on her right hallux. This differs from what she reported in the emergency department which states she dropped a cast iron farrar on her toe to her right great toe. Patient is a very poor historian when she was seen bedside she is unsure if the injury occurred yesterday or the day before. She reports pain in the right great toe which is constant throbbing. Review of Systems Constitutional: Denies body ache(s), Denies chills Eyes: Denies blind spots Ears, Nose, Mouth, and Throat: Denies abnormal hearing Cardiovascular: Denies chest pain Respiratory: Denies cough Gastrointestinal: Denies abdominal pain Endocrine: Denies cold intolerance, Denies excessive sweating, Denies rapid, pounding, or irregular heartbeat PMFSH - History History Provided By: Patient - Medical History Medical History: Medical History (Last Reviewed 12/01/17 @ 12:53 by Bridget Bass) ADHD Anxiety Depressed Drug usage PTSD (post-traumatic stress disorder) - Tobacco History Second Hand Smoke Exposure: No Tobacco Use In Past 30 Days: Yes Smoking Status: Current every day smoker Tobacco Type: Cigarettes - Alcohol History How Often Do You Have a Drink Containing Alcohol: Unable to Obtain - Substance Use History Substance History: Unable to Obtain - Travel History Recent Travel in the [place] Within the Last 8 Weeks: No Recent Travel Out of the Country Within the Last 8 Weeks: No - Immunization History Tetanus Immunization: Unsure Hx Influenza Vaccine This Season: No Medications and Allergies Active Medications: Active Medications Acetaminophen (Tylenol) 650 mg PO Q4H PRN PRN Reason: Fever, headache, pain 1-4 Hydrocodone Bitart/Acetaminophen ([place]eland 7.5/325) 1 tab PO Q6H PRN PRN Reason: Pain 5-10 Al Hydroxide/Mg Hydroxide (Milk Of Magnesia Liq) 30 ml PO Q12H PRN PRN Reason: Mild Constipation Bisacodyl (Dulcolax Supp) 10 mg RECTAL DAILY PRN PRN Reason: SEVERE CONSITIPATION Sodium Chloride (Ns Inj) 1,000 mls @ 100 mls/hr IV.CONT .Q10H [facility] Last Admin: 12/01/17 08:19 Dose: 100 mls/hr Pharmacy Profile Note (Vancomycin Consult Pharmacy) 0 mls @ 0 mls/hr OTHER UNSCH [facility] Piperacillin/Tazobactam/Dextrose (Zosyn 2.25 Gm Premix) 50 mls @ 100 mls/hr IV.SIG Q6H [facility] Last Admin: 12/01/17 08:14 Dose: 100 mls/hr Vancomycin HCl 1,000 mg/ (Sodium Chloride) 250 mls @ 250 mls/hr IV.SIG Q12H [facility] Last Admin: 12/01/17 11:50 Dose: 250 mls/hr Lactulose (Lactulose Liq) 30 ml PO DAILY PRN PRN Reason: SEVERE CONSITIPATION Miscellaneous Information ([facility] Ordered Lab Info) 0 each OTHER ONCE ONE Stop: 12/03/17 09:46 Ondansetron HCl (Zofran Odt) 4 mg PO Q6H PRN PRN Reason: NAUSEA OR VOMITING Senna/Docusate Sodium (Yanira-Colace) 1 tab PO BID [facility] Last Admin: 12/01/17 08:17 Dose: 1 tab Sennosides (Senokot) 17.2 mg PO Q12H PRN PRN Reason: Moderate Constipation Temazepam (Restoril) 15 mg PO HS PRN PRN Reason: INSOMNIA Allergies Allergy/AdvReac Type Severity Reaction Status Date / Time *MDRO Multi-Drug Resistant Allergy Unknown Anaphylaxis Uncoded 11/30/17 14:18 Organism Home Medications Medication Instructions Recorded Confirmed Type dextroamphetamine-amphetamine 15 mg PO DAILY 11/30/17 11/30/17 History [Adderall] escitalopram oxalate [Lexapro] 20 mg PO DAILY 11/30/17 11/30/17 History Physical Exam Vital signs: Vital Signs 11/30/17 17:43 11/30/17 20:00 12/01/17 00:00 Temperature 97.6 F 97.4 F L Pulse Rate 95 H 97 H 92 H Respiratory Rate 16 19 17 Blood Pressure 115/61 99/56 L Pulse Oximetry 97 96 96 12/01/17 04:00 12/01/17 08:00 12/01/17 12:00 Temperature 97.5 F L 97.8 F 97.6 F Pulse Rate 92 H 97 H 78 Respiratory Rate 17 20 20 Blood Pressure 116/74 107/56 L 113/76 Pulse Oximetry 97 95 94 L Intake & Output 11/30/17 12/01/17 12/01/17 18:59 06:59 18:59 Intake Total 1050 / 1050 Balance 1050 / 1050 Weight 82.1 kg 74.5 kg Intake: IV 1050 / 1050 NS Inj 1,000 ML @ 100 mls/hr IV 1000 / 1000 .CONT .Q10H [facility] Rx#:[id number] Zosyn 2.25 GM Premix 50 ML @ 50 / 50 100 mls/hr IV.SIG Q6H [facility] Rx#: [id number] Other: # Voids 3 Narrative: GENERAL: This is a well-nourished, well-developed patient, in no apparent distress. SKIN: Laceration noted to right dorsal hallux HEAD: Atraumatic. EYES: Pupils equal round and reactive. ENT: Airway patent. NECK: Trachea midline. RESPIRATORY: Nonlabored breathing. MUSCULOSKELETAL:. Negative Homans sign bilaterally. NEUROLOGICAL: Awake and alert. Normal speech. Lower extremity physical exam: Vascular: Dorsalis pedis 2/4, posterior tibial 2/4. Capillary refill time within normal limits to digits 5 bilateral foot. Edema not present to right foot Neuro: Gross sensation intact to bilateral lower extremity. Pinpoint sensation intact. No hyperalgesia noted to bilateral lower extremity Dermatology: Normal temperature and turgor to bilateral lower extremity. 3 cm laceration noted to dorsal hallux with probe to bone no active bleeding noted. Musculoskeletal: Tender to palpation to right hallux. Active dorsiflexion and plantarflexion noted to right hallux. Assessment and Plan - Plan 37-year-old female with right hallux open fracture Patient examined and evaluated with all questions answered 2 OR today for right hallux open fracture debridement irrigation with laceration repair Anticipate DC after 5 doses of IV antibiotics Will obtain cultures as there is a question as to how old injury is Patient will need to go out on antibiotics Discussed all risks complications alternatives and benefits associated with proceeding, patient agrees to proceed with procedure
[2017-12-01] MEDS ORDERED: Neomycin/Polymyxin G.U. Irrigant 1 ML Ampul ONE (16:35)
[2017-12-01] MEDS ORDERED: Bupivacaine PF 0.5% Inj 30 ML Vial ONE (16:38)
--- NOTE | 2017-12-01 16:46 | P.PCN ---
Date of procedure: 12/01/17 Pre-op diagnosis: Right open proximal phlanax hallux fracture Post-op diagnosis: same Procedure: Right hallux debridement and irrigation with laceration repair Anesthesia: [facility] Surgeon: Jeny Pastor Estimated blood loss (mL): 5 Pathology: other (Wound culture) Condition: stable Disposition: PACU (with VSS and NVS intact to right foot)
[2017-12-01] MEDS ORDERED: Post-op Orders (for Pharmacy) OTHER STA (17:33)
[2017-12-01] MEDS ORDERED: ceFAZolin 2 GM Premix Inj 2 GM/50 ML PIGGYBACK IV.SIG ONE (17:38)
[2017-12-01] MEDS ORDERED: fentaNYL Citrate Inj 100 MCG/2 ML Ampul ONE ×2 (17:52→17:53)
--- NOTE | 2017-12-01 18:05 | MR ---
cc: Jeny Pastor DPM DATE: 12/01/2017 SURGEON: Jeny Pastor DPM SHEEP STICKER: None. PREOPERATIVE DIAGNOSIS: Right proximal phalanx open fracture. POSTOPERATIVE DIAGNOSIS: Right proximal phalanx open fracture. PROCEDURE PERFORMED: Right open proximal phalanx fracture with laceration repair. ANESTHESIA: General with a local infiltrate of 3 mL of 0.5% Marcaine plain infiltrated about the right hallux. HEMOSTASIS: None. ESTIMATED BLOOD LOSS: 1 mL. MATERIALS: 3-0 Monocryl and 3-0 Prolene. INJECTABLES: None. COMPLICATIONS: None. INDICATIONS FOR PROCEDURE: The patient is a 37-year-old female with past medical history of PTSD, bipolar disorder and a longstanding history of polysubstance abuse. She presented to the emergency department for evaluation of an injury which she states she dropped a stone on her right hallux. In the ED, she said that she dropped a cast iron panel on her right toe. She is a very poor historian and cannot recall as to whether it happened today or yesterday or the day before. Therefore, decision was made to proceed to the OR for debridement and irrigation of open fracture with laceration repair. The patient understands alternatives, risks and complications associated with the procedure. She would like to proceed with surgical intervention. DESCRIPTION OF PROCEDURE: The patient was brought to the operating room, placed on the operating room table in the supine position and general anesthesia was then induced. Timeout was taken via AAOS guidelines in order to identify the correct patient, medical record number and correct side surgery. The 3 mL of 0.5% Marcaine plain was infiltrated about the right hallux. Right foot was prepped and draped in the usual sterile fashion. Attention was then directed to the right hallux, at which time 3 liters of normal saline with gentamicin was used to irrigate out the laceration. There was noted to be no laceration to the extensor hallucis longus, it was intact. Following irrigation wound culture was taken. This was sent to microbiology. Subcutaneous tissue was then reapproximated with 3-0 Monocryl. The skin was reapproximated with 3-0 Prolene. Then, Xeroform was placed to the incision site, along with 4 x 4s and Coban. The patient tolerated the procedure and anesthesia well. She was transferred to the PACU with vital signs stable and neurovascular status intact to the right foot. She will receive 5 doses of Ancef. She was receiving vancomycin and Zosyn as of yet in the ED. Will follow OR cultures and patient is to follow up in office within 1 week of discharge. Patient is to remain heel weight bearing in post op shoe. YVROSE Martinez/JIM , 05:43 PM , 06:03 PM OZZIE
[2017-12-02] MEDS: ceFAZolin Inj 2,000 MG in Sodium Chlor 0.9% Inj 80 ML IV.SIG SCH ×3 (01:22→16:48)
[2017-12-02] MEDS: Sod Chloride 0.9% Inj 1,000 ML IV.CONT SCH ×3 (07:00→21:57)
[2017-12-02 08:14] LABS: Glomerular Filtration Rate Greater Than 89 mL/min (>89)
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
[2017-12-02] MEDS: Senna/Docusate Sodium 8.6/50 MG Tablet PO SCH ×2 (10:34→21:57)
--- NOTE | 2017-12-02 18:30 | P.PNPOD ---
Subjective Interval history: Patient seen bedside. Resting comfortably. No concerns at this time. States she is feeling better. Physical Exam Vital signs: Vital Signs 12/01/17 20:00 12/02/17 00:00 12/02/17 04:00 Temperature 97.5 F L 97.8 F 97.3 F L Pulse Rate 103 H 81 72 Respiratory Rate 18 18 18 Blood Pressure 113/83 103/59 L 122/70 Pulse Oximetry 96 95 96 12/02/17 08:00 12/02/17 12:00 12/02/17 16:00 Temperature 97.9 F 98.1 F 97.8 F Pulse Rate 77 88 82 Respiratory Rate 14 14 14 Blood Pressure 143/88 H 119/64 135/80 Pulse Oximetry 95 97 98 Intake & Output 12/01/17 12/02/17 12/02/17 18:59 06:59 18:59 Intake Total 1850 / 1850 1600 / 1600 100 / 100 Output Total / Balance 1849 / 1849 1600 / 1600 100 / 100 Weight 74.2 kg Intake: IV 1350 / 1350 1100 / 1100 100 / 100 NS Inj 1,000 ML @ 100 mls/hr IV 1000 / 1000 1000 / 1000 .CONT .Q10H [facility] Rx#:[id number] Zosyn 2.25 GM Premix 50 ML @ 100 / 100 100 mls/hr IV.SIG Q6H ZENA Rx#: [id number] Vancomycin Inj 1,000 MG In NS 250 / 250 Inj 250 ML @ 250 mls/hr IV.SIG Q12H [facility]ENA Rx#:[id number] Ancef Inj 2,000 MG In NS Inj 80 100 / 100 100 / 100 ML @ 200 mls/hr IV.SIG Q8H ZENA Rx#:[id number] Oral 500 / 500 Anesthesia Amount 500 / 500 Output: Estimated Blood Loss Other: # Voids 1 3 2 Narrative: Dressing intact to right foot. Capillary refill time under 3 seconds to digits 5 right foot. DP PT pulses palpable. Active passive dorsiflexion digits 5. Medications and Allergies Active Medications: Active Medications Acetaminophen (Tylenol) 650 mg PO Q4H PRN PRN Reason: Fever, headache, pain 1-4 Hydrocodone Bitart/Acetaminophen (Alpha 7.5/325) 1 tab PO Q6H PRN PRN Reason: Pain 5-10 Last Admin: 12/02/17 16:46 Dose: 1 tab Al Hydroxide/Mg Hydroxide (Milk Of Magnesia Liq) 30 ml PO Q12H PRN PRN Reason: Mild Constipation Bisacodyl (Dulcolax Supp) 10 mg RECTAL DAILY PRN PRN Reason: SEVERE CONSITIPATION Diphenhydramine HCl (Benadryl) 25 mg PO Q6H PRN PRN Reason: ITCHING Sodium Chloride (Ns Inj) 1,000 mls @ 100 mls/hr IV.CONT .Q10H [facility] Last Admin: 12/02/17 10:36 Dose: 100 mls/hr Lactulose (Lactulose Liq) 30 ml PO DAILY PRN PRN Reason: SEVERE CONSITIPATION Miscellaneous Information ([facility] Ordered Lab Info) 0 each OTHER ONCE ONE Stop: 12/03/17 09:46 Ondansetron HCl (Zofran Odt) 4 mg PO Q6H PRN PRN Reason: NAUSEA OR VOMITING Senna/Docusate Sodium (Yanira-Colace) 1 tab PO BID [facility] Last Admin: 12/02/17 10:34 Dose: 1 tab Sennosides (Senokot) 17.2 mg PO Q12H PRN PRN Reason: Moderate Constipation Sodium Chloride (Ns Flush) 2 ml IV.FLUSH BID [facility] Last Admin: 12/02/17 10:34 Dose: 2 ml Sodium Chloride (Ns Flush) 2 ml IV.FLUSH PRN PRN PRN Reason: FLUSH AFTER USING IV ACCESS Temazepam (Restoril) 15 mg PO HS PRN PRN Reason: INSOMNIA Allergies Allergy/AdvReac Type Severity Reaction Status Date / Time *MDRO Multi-Drug Resistant Allergy Unknown Anaphylaxis Uncoded 11/30/17 14:18 Organism Home Medications Medication Instructions Recorded Confirmed Type dextroamphetamine-amphetamine 15 mg PO DAILY 11/30/17 11/30/17 History [Adderall] escitalopram oxalate [Lexapro] 20 mg PO DAILY 11/30/17 11/30/17 History Results - Labs CBC & Chem 7: 12/01/17 05:50 12/02/17 07:00 Laboratory Results - last 24 hr 12/02/17 07:00 Creatinine 0.67 Estimated GFR Greater than 89 Microbiology 12/01/17 17:25 Wound - Foot Acid Fast Bacilli Smear - Final No acid fast bacilli seen 12/01/17 17:25 Wound - Foot Gram Stain - Final 12/01/17 17:25 Wound - Foot Wound Culture - Preliminary No growth in 24 hours 12/01/17 02:40 Clean Catch Urine Urine Culture - Final 12/01/17 17:25 Wound - Foot Fungal Smear - Final No fungal elements seen 11/30/17 19:43 Wound - Toe Gram Stain - Final 11/30/17 19:43 Wound - Toe Wound Culture - Preliminary Assessment and Plan - Plan 37-year-old female status post right hallux open fracture and laceration debridement irrigation with laceration repair Patient examined evaluated with all questions answered Patient okay to DC on appropriate antibiotics once the OR cultures are made final Limited weightbearing in postop shoe to the right lower extremity Encouraged strongly outpatient follow-up Patient to follow-up within 1 week of discharge with myself, Dr. Pastor
[2017-12-03] MEDS: Sod Chloride 0.9% Inj 1,000 ML IV.CONT SCH (09:42)
[2017-12-03] MEDS: Senna/Docusate Sodium 8.6/50 MG Tablet PO SCH (09:43)
[2017-12-03] MEDS ORDERED: Pharmacy Ordered Lab Info OTHER ONE (09:45)
--- NOTE | 2017-12-03 11:13 | P.PN ---
Subjective Interval history: Follow up for right great toe laceration, fracture. Patient is currently doing well. Pain is well controlled. No fever or chills. She states that she can stay with her neighbor. Physical Exam Vital signs: Vital Signs 12/02/17 12:00 12/02/17 16:00 12/02/17 20:00 Temperature 98.1 F 97.8 F 98.2 F Pulse Rate 88 82 76 Respiratory Rate 14 14 18 Blood Pressure 119/64 135/80 125/74 Pulse Oximetry 97 98 95 12/03/17 00:00 12/03/17 04:00 12/03/17 05:12 Temperature 97.7 F 98 F Pulse Rate 76 82 Respiratory Rate 18 16 Blood Pressure 132/73 145/88 H Pulse Oximetry 94 L 18 L 12/03/17 08:00 Temperature 98.3 F Pulse Rate 70 Respiratory Rate 16 Blood Pressure 150/90 H Pulse Oximetry 96 Intake & Output 12/02/17 12/03/17 12/03/17 18:59 06:59 18:59 Intake Total 100 / 100 1100 / 1100 1000 / 1000 Balance 100 / 100 1100 / 1100 1000 / 1000 Weight 74.2 kg Intake: IV 100 / 100 1100 / 1100 1000 / 1000 NS Inj 1,000 ML @ 100 mls/hr IV 1000 / 1000 1000 / 1000 .CONT .Q10H [facility] Rx#:[id number] Ancef Inj 2,000 MG In NS Inj 80 100 / 100 ML @ 200 mls/hr IV.SIG Q8H [facility] Rx#:[id number] Other: # Voids 2 3 Date of Last Bowel Movement 12/02/17 12/02/17 Narrative: GENERAL: Alert, oriented 3, NAD. SKIN: Warm and dry. HEAD: Normocephalic. EYES: No scleral icterus. No injection or drainage. NECK: Supple, trachea midline. No JVD or lymphadenopathy. CARDIOVASCULAR: Regular rate and rhythm without murmurs, gallops, or rubs. RESPIRATORY: Breath sounds equal bilaterally. No accessory muscle use. GASTROINTESTINAL: Abdomen soft, non-tender, nondistended. MUSCULOSKELETAL: No cyanosis, or edema. Right great toe status post surgery. BACK: Nontender without obvious deformity. No CVA tenderness. Results - Labs CBC & Chem 7: 12/01/17 05:50 12/02/17 07:00 Microbiology 12/01/17 17:25 Wound - Foot Gram Stain - Final 12/01/17 17:25 Wound - Foot Wound Culture - Preliminary No growth in 48 hours 12/01/17 17:25 Wound - Foot Acid Fast Bacilli Smear - Final No acid fast bacilli seen 12/01/17 02:40 Clean Catch Urine Urine Culture - Final 12/01/17 17:25 Wound - Foot Fungal Smear - Final No fungal elements seen 11/30/17 19:43 Wound - Toe Gram Stain - Final 11/30/17 19:43 Wound - Toe Wound Culture - Preliminary Assessment and Plan - Plan 37-year-old female with past medical history significant for PTSD, bipolar disorder and long-standing history of polysubstance abuse presents to the emergency department on 11/30/2017 for the evaluation of a right great toe laceration. X-ray in the emergency department shows nondisplaced intra- articular fracture involving the distal portion of the proximal phalanx. Podiatry was consulted. Right great toe fracture -Status post I&D with laceration repair on 12/01/2017. -Patient received Ancef IV. -We will switch IV antibiotics to p.o. Keflex. -Continue acetaminophen, [place] for pain management. Acute kidney injury -Creatinine 2.40 on admission. Improved to 0.67. -IV fluid discontinued. History of polysubstance abuse History of IV drug use -Patient is counseled on drug abuse. She appears to be motivated to quit. -Drug screen was positive for opioids, amphetamines, cocaine. Full code. Ambulation. Discharge plan: If we do not have to hold patient in the hospital due to DCF involvement, we can discharge patient with her neighbor.
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
== END 2017-12-03 13:47 | disposition home or self-care (01) ==
LOC: NEPD 14:00 → NEDA 18:41 → N05 21:30
PROVIDERS: ADMIT Hospitalist; ATTEND Hospitalist